=== PATIENT | female | born 1935 | race Caucasian/White ===

== ENCOUNTER 2019-01-01 00:08 | Emergency (ER) | payer MEDICARE ==
[2019-01-01 00:53] LABS: #Basophils 0.1 thou/uL (0.0-0.2); #Eosinphils 0.3 thou/uL (0.0-0.7); #Lymphocytes 1.1 thou/uL (1.20-3.40); #Monocytes 0.5 thou/uL (0.11-0.59); #Neutrophils 9.4 thou/uL (1.40-6.50); %Basophils 0.5 % (0.0-1.0); %Eosinophils 2.3 % (0.0-10.0); %Lymphocytes 9.9 % (21.0-51.0); %Monocytes 4.7 % (0.0-10.0); %Neutrophils 82.6 % (42.0-75.0); Hemoglobin 15.2 g/dL (12.0-16.0); Mean Corpuscular HGB CONC 32.3 g/dL (32.0-36.0); Mean Corpuscular Hemoglobin 29.6 pg (27.0-31.0); Mean Corpuscular Volume 91.5 fL (78.0-98.0); Mean Platelet Volume 7.8 fL (7.4-10.4); Platelet Count 238 thou/uL (130-400); RBC Distribution Width 12.1 % (11.5-14.5); Red Blood Cell (RBC) Count 5.12 mill/uL (4.20-5.40); White Blood Cell (WBC) Count 11.4 thou/uL (4.8-10.8)
[2019-01-01 01:13] LABS: ALT (SGPT) 10 U/L (8-55); AST (SGOT) 16 U/L (5-34); Albumin 4.2 g/dL (3.4-4.8); Alkaline Phosphatase 75 U/L (40-150); Anion Gap 15 mmol/L (10-20); BUN (Urea Nitrogen) 24 mg/dL (9.8-20.1); Bilirubin, Total 0.3 mg/dL (0.2-1.2); Calc. Creatinine Clearance 0 mL/min (70-130); Calcium 9.6 mg/dL (7.8-10.44); Carbon Dioxide 25 mmol/L (23-31); Chloride 108 mmol/L (98-107); Estimated GFR-MDRD 35; Globulin 3.5 g/dL (2.4-3.5); Glucose 136 mg/dL (83-110); Protein, Total 7.7 g/dL (6.0-8.3); Sodium 143 mmol/L (136-145)
[2019-01-01] MEDS ORDERED: Ibuprofen 800 MG TAB ONE (02:57)
[2019-01-01 05:02] LABS: Bilirubin Negative (Negative); Blood, Urine Negative (Negative); Clarity CLEAR (Clear); Glucose, Urine (Dipstick) Negative (Negative); Leukocyte Small (Negative); Nitrite Negative (Negative); Protein, Urine (Dipstick) Trace mg/dL (Neg-Trace); Specific Gravity, Urine 1.029 (1.002-1.036); Urobilinogen 0.2 mg/dL (0.2-1.0)
[2019-01-01 05:05] LABS: Bacteria/HPF None Seen HPF (None Seen); Hyaline Casts/LPF 4-6 HYALINE CAST LPF (0-3 Hyaline); Pathc Cast-AUWi Flag 1.36 (0-2.49); Squamous Epithelial 0-3 HPF (0-3)
--- NOTE | 2019-01-01 09:12 | CT ---
PRELIMINARY REPORT/[facility]/EMERGENCY AFTER HOURS PROCEDURE: EXAM: CT Abdomen and Pelvis Without Contrast EXAM DATE/TIME: 01/01/2019 2:59 AM CLINICAL HISTORY: 83 years old, female; Abdominal pain; Patient HX: Er [id number]; Patient reports having right flank pain, reports she believes it to be a kidney stone. Patient reports pain upon moving TECHNIQUE: Imaging protocol: Axial computed tomography images of the abdomen and pelvis without contrast. Aquino l reformatted images were created and reviewed. COMPARISON: No relevant prior studies available. FINDINGS: Lungs: No consolidations in the lung bases. ABDOMEN: Liver: No mass. Gallbladder and bile ducts: Cholelithiasis. No ductal dilation. Pancreas: No mass or ductal dilation. Spleen: No mass. Adrenals: Well-circumscribed 2.2 cm left adrenal gland nodule. Kidneys and ureters: Nonobstructing 3 mm stone in the inferior pole of the right kidney. Simple cyst measuring 4.5 cm in the left kidney. Stomach and bowel: Colonic diverticulosis. There is a 5 cm solid round mass abutting the greater curv ature of the stomach. Incidental duodenal diverticulum. No bowel obstruction. Appendix: Normal appendix. PELVIS: Bladder: There is a 3 mm stone that may be in the bladder base. No hydronephrosis. The bladder is dec ompressed. Reproductive: There is a calcified 2.7 cm uterine fibroid. There is a 9 cm mass in the pelvis, just a nterior to the uterus and superior to the bladder. ABDOMEN and PELVIS: Intraperitoneal space: No free air or free fluid. Bones/joints: No suspicious bone lesions. Soft tissues: No acute findings. Vasculature: Marked atherosclerotic changes of the abdominal aorta with minimal aneurysmal dilation u p to 2.5 cm. Lymph nodes: No lymphadenopathy. IMPRESSION: 1. There is a 3 mm calcification that appears to be in the posterior bladder, possibly a recently pas sed stone. There is no hydronephrosis. Nonobstructing 3 mm stone in the inferior pole of the right ki dney. 2. There is a 5 cm round circumscribed mass adjacent to the greater curvature of the stomach, primary differential is a GIST. 3. There is a 9 cm round circumscribed mass in the pelvis adjacent to the bladder and uterus, possibl y a large exophytic uterine fibroid, but indeterminate on this exam. 4. Left adrenal gland 2.2 cm nodule. 5. Cholelithiasis. Defer to on-site radiologist recommendations for followup for above indeterminate findings. Thank you for allowing us to participate in the care of your patient. Dictated and Authenticated by: Francia Roque MD 01/01/2019 3:20 AM Central Time ([place] & [place]) FINAL REPORT I agree with the preliminary report provided. 1. There is a tiny calcification seen within the base of the bladder possibly reflective of a recent ly passed stone. 2. A large exophytic hyperdense mass off the anterior aspect of the uterine body is likely related t o a prominent fibroid. This is likely stable to a comparison in 12/14/2014. 3. The solid-appearing mass lesion involving the greater curvature of the stomach is relatively stabl e in size form 2015. CT of the abdomen with and without contrast is recommended for full characteriz ation. 4. Left adrenal nodule has not appreciably changed in size and is suspicious for a slightly lipid-po or adrenal adenoma. This can be further assessed with a CT of the abdomen with and without contrast utilizing a renal mass protocol. 5. Cholelithiasis. 6. Right nephrolithiasis. CODE T POS: BH
== END 2019-01-01 05:22 | disposition home or self-care (01) ==
LOC: ERS 00:08
DX: N20.1 Calculus of ureter (principal); I10 Essential (primary) hypertension; Z79.899 Other long term (current) drug therapy; M19.90 Unspecified osteoarthritis, unspecified site; Z79.891 Long term (current) use of opiate analgesic
CPT/HCPCS: 36415; 74176; 80053; 81003; 81015; 85025

== ENCOUNTER 2019-01-04 13:13 | Emergency (ER) | payer MEDICARE ==
[2019-01-04 14:13] LABS: #Basophils 0.1 thou/uL (0.0-0.2); #Eosinphils 0.2 thou/uL (0.0-0.7); #Lymphocytes 1.5 thou/uL (1.20-3.40); #Monocytes 0.7 thou/uL (0.11-0.59); #Neutrophils 8.2 thou/uL (1.40-6.50); %Basophils 0.7 % (0.0-1.0); %Eosinophils 2.2 % (0.0-10.0); %Lymphocytes 14.2 % (21.0-51.0); %Monocytes 6.2 % (0.0-10.0); %Neutrophils 76.7 % (42.0-75.0); Hemoglobin 15.6 g/dL (12.0-16.0); Mean Corpuscular HGB CONC 32.4 g/dL (32.0-36.0); Mean Corpuscular Hemoglobin 29.6 pg (27.0-31.0); Mean Corpuscular Volume 91.4 fL (78.0-98.0); Mean Platelet Volume 7.6 fL (7.4-10.4); Platelet Count 238 thou/uL (130-400); RBC Distribution Width 12.2 % (11.5-14.5); Red Blood Cell (RBC) Count 5.26 mill/uL (4.20-5.40); White Blood Cell (WBC) Count 10.7 thou/uL (4.8-10.8)
[2019-01-04] MEDS ORDERED: Morphine 4 MG/ML VIAL ONE (14:34)
[2019-01-04] MEDS ORDERED: Ondansetron ODT 8 MG TAB ONE (14:34)
[2019-01-04] MEDS ORDERED: Ketorolac Tromethamine 30 MG/ML VIAL ONE (14:34)
[2019-01-04 14:35] LABS: ALT (SGPT) 12 U/L (8-55); AST (SGOT) 19 U/L (5-34); Alkaline Phosphatase 75 U/L (40-150); Anion Gap 15 mmol/L (10-20); BUN (Urea Nitrogen) 20 mg/dL (9.8-20.1); Bilirubin, Total 0.4 mg/dL (0.2-1.2); Calc. Creatinine Clearance 0 mL/min (70-130); Calcium 9.9 mg/dL (7.8-10.44); Carbon Dioxide 24 mmol/L (23-31); Chloride 104 mmol/L (98-107); Estimated GFR-MDRD 44; Globulin 3.3 g/dL (2.4-3.5); Glucose 105 mg/dL (83-110); Potassium 4.5 mmol/L (3.5-5.1); Protein, Total 7.3 g/dL (6.0-8.3); Sodium 138 mmol/L (136-145)
--- NOTE | 2019-01-04 15:14 | CT ---
CT ABDOMEN AND PELVIS 2WITHOUT CONTRAST: 01/04/19 PROVIDED CLINICAL HISTORY: Right buttock pain. FINDINGS: Comparison is made with the examination performed 01/01/19. The visualized lung bases are free of significant opacity. Gallstones, left adrenal mass, exophytic gastric mass and small urinary bladder calculus are redemons trated. Tiny nonobstructing inferior pole right renal calculus redemonstrated. No evidence for hydro nephrosis. No bowel dilatation, inflammatory fat stranding, free fluid or free air apparent. Uterine fibroid dis ease is redemonstrated. The appendix appears normal. The osseous structures demonstrate no concerning lytic or blastic lesions. IMPRESSION: No evidence for an acute process. Stable chronic findings as above. POS: C
[2019-01-04 15:15] LABS: Bilirubin Negative (Negative); Blood, Urine Negative (Negative); Glucose, Urine (Dipstick) Negative (Negative); Leukocyte Negative (Negative); Nitrite Negative (Negative); Protein, Urine (Dipstick) Negative (Neg-Trace); Specific Gravity, Urine 1.011 (1.002-1.036); Urobilinogen 0.2 mg/dL (0.2-1.0); pH, Urine 7.5 (5.0-9.0)
[2019-01-04 15:23] LABS: Clarity Clear (Clear)
[2019-01-04] MEDS ORDERED: Dexamethasone 4 mg/ml Vial ONE (16:17)
== END 2019-01-04 16:05 | disposition home or self-care (01) ==
LOC: ERS 13:13
DX: M54.31 Sciatica, right side (principal); I10 Essential (primary) hypertension; M19.90 Unspecified osteoarthritis, unspecified site; Z79.899 Other long term (current) drug therapy
CPT/HCPCS: 36415; 74176; 80053; 81003; 85025; 87086; 96372; J1100; J1885; J2270

== ENCOUNTER 2020-01-23 08:14 | Outpatient (CLI) | payer MEDICARE ==
--- NOTE | 2020-01-23 10:47 | CT ---
CT abdomen with and without contrast: DATE: 01/23/2020 HISTORY: 84-year-old female with ICD-10: "N20.0 nephrolithiasis." Gastric mass and adrenal mass. COMPARISON: Noncontrast CTs of 01/04/2019, 01/01/2019, and 12/14/2014 TECHNIQUE: IV contrast: 90 mL [id number]. Precontrast, and venous phase, scans from lung bases to iliac crests with coronal and sagittal recons tructions. 10 minute delayed scan through adrenals. FINDINGS: Approximately 2 x 1.5 x 2.5 cm left adrenal nodule is unchanged compared to 12/14/2014. Furthermore, pr econtrast density is 6 Hounsfield units, also consistent with benign adrenal adenoma. Venous phase density 62 Hounsfield units. Delayed phase density 28 Hounsfield units. Absolute washout 61%. Relativ e washout 55%. There are 2 separate 1 mm round calculi at right renal lower pole calyces, visible only on sagittal a nd coronal reconstructions. No calculus in the left kidney. No hydronephrosis. 4.5 cm cyst at medial aspect of left renal upper pole has grown slowly since 2014. by a thin septation, th ere is a smaller second cyst or daughter cyst measuring 2 cm abutting its superior aspect. Several tiny left renal cortical cysts and a few tiny right renal cortical cysts, less than 1 cm in size each . No hydronephrosis. Several calcified gallstones. No signs of acute cholecystitis. Smoothly well-circumscribed, rounded 5 x 3.5 x 4.5 cm soft tissue density pedunculated mass exophytic ally protruding from the corpus of the stomach. Densities are 37 Hounsfield units precontrast, 69 Hounsfield units venous phase, and 60 Hounsfield units delayed phase. There has been little or no mikel nge in size since 12/14/2014. Atherosclerotic calcific aeration of abdominal aorta and common iliac arteries without aneurysm. Normal liver, spleen, and pancreas. Diverticulum at second stage of duodenum. 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 2) benign left adrenal adenoma. 3) cholelithiasis without acute cholecystitis 4) minimal nephrolithiasis: 2 punctate 1 mm right renal calculi. 6) atherosclerosis of abdominal aorta. 7) lumbar spondylosis
== END 2020-01-23 08:15 | disposition home or self-care (01) ==
LOC: CT 08:14
PROVIDERS: ATTEND Urology
DX: N20.0 Calculus of kidney (principal); D49.0 Neoplasm of unspecified behavior of digestive system; D35.02 Benign neoplasm of left adrenal gland; K80.20 Calculus of gallbladder without cholecystitis without obstruction; I70.0 Atherosclerosis of aorta; M47.816 Spondylosis without myelopathy or radiculopathy, lumbar region
CPT/HCPCS: 74170; 82565

== ENCOUNTER 2020-10-20 17:21 | Emergency (ER) | payer MEDICARE ==
[2020-10-20 18:57] LABS: ALT (SGPT) 7 U/L (8-55); AST (SGOT) 15 U/L (5-34); Alkaline Phosphatase 87 U/L (40-110); Anion Gap 14 mmol/L (10-20); BUN (Urea Nitrogen) 18 mg/dL (9.8-20.1); Bilirubin, Total 0.5 mg/dL (0.2-1.2); CK (CPK) 74 U/L (29-168); Calc. Creatinine Clearance 0 mL/min (70-130); Calcium 9.4 mg/dL (7.8-10.44); Carbon Dioxide 25 mmol/L (23-31); Chloride 105 mmol/L (98-107); Globulin 3.4 g/dL (2.4-3.5); Glucose 110 mg/dL (83-110); Lipase 42 U/L (8-78); Potassium 4.1 mmol/L (3.5-5.1); Protein, Total 7.4 g/dL (5.8-8.1); Sodium 140 mmol/L (136-145)
[2020-10-20 19:01] LABS: #Eosinphils 0.2 thou/uL (0.0-0.7); #Lymphocytes 1.4 thou/uL (1.20-3.40); #Monocytes 0.7 thou/uL (0.11-0.59); #Neutrophils 6.8 thou/uL (1.40-6.50); %Basophils 0.4 % (0.0-1.0); %Eosinophils 2.1 % (0.0-10.0); %Lymphocytes 15.2 % (21.0-51.0); %Monocytes 7.8 % (0.0-10.0); %Neutrophils 74.5 % (42.0-75.0); Hemoglobin 14.6 g/dL (12.0-16.0); Mean Corpuscular HGB CONC 32.9 g/dL (32.0-36.0); Mean Corpuscular Hemoglobin 30.5 pg (27.0-31.0); Mean Corpuscular Volume 92.7 fL (78.0-98.0); Mean Platelet Volume 8.9 fL (7.4-10.4); Platelet Count 205 thou/uL (130-400); RBC Distribution Width 11.7 % (11.5-14.5); Red Blood Cell (RBC) Count 4.77 mill/uL (4.20-5.40); White Blood Cell (WBC) Count 9.2 thou/uL (4.8-10.8)
[2020-10-20 19:05] LABS: Bilirubin Negative (Negative); Blood, Urine Trace (Negative); Clarity Turbid (Clear); Glucose, Urine (Dipstick) Normal (Negative); Ketone, Urine Negative (Negative); Leukocyte 500 Leu/uL (Negative); Nitrite Negative (Negative); Protein, Urine (Dipstick) 10 mg/dL (Neg-Trace); Specific Gravity, Urine 1.021 (1.002-1.036); Urobilinogen Normal mg/dL (Less than 2); WBC/HPF Greater than 50 HPF (0-3)
[2020-10-20 19:06] LABS: Bacteria/HPF 1+ HPF (None Seen)
[2020-10-20] MEDS ORDERED: Furosemide 40 MG/4 ML VIAL ONE (20:21)
== END 2020-10-20 20:40 | disposition home or self-care (01) ==
LOC: ERS 17:21
DX: R60.0 Localized edema (principal); I10 Essential (primary) hypertension; Z79.899 Other long term (current) drug therapy
CPT/HCPCS: 36415; 71045; 80053; 81003; 81015; 82550; 83690; 83880; 84484; 85025; 93005; 94760; 96374; J1940

== ENCOUNTER 2021-12-17 08:31 | Emergency (ER) | payer MEDICARE ==
[2021-12-17 09:42] LABS: #Basophils 0.1 thou/uL (0.0-0.2); #Eosinphils 0.2 thou/uL (0.0-0.7); #Lymphocytes 1.4 thou/uL (1.20-3.40); #Monocytes 0.5 thou/uL (0.11-0.59); #Neutrophils 6.7 thou/uL (1.40-6.50); %Basophils 0.8 % (0.0-1.0); %Eosinophils 2.8 % (0.0-10.0); %Lymphocytes 15.4 % (21.0-51.0); %Monocytes 5.3 % (0.0-10.0); %Neutrophils 75.7 % (42.0-75.0); Hemoglobin 14.5 g/dL (12.0-16.0); Mean Corpuscular HGB CONC 32.4 g/dL (32.0-36.0); Mean Corpuscular Hemoglobin 30.4 pg (27.0-31.0); Mean Corpuscular Volume 93.9 fL (78.0-98.0); Mean Platelet Volume 7.4 fL (7.4-10.4); Platelet Count 245 thou/uL (130-400); RBC Distribution Width 11.9 % (11.5-14.5); Red Blood Cell (RBC) Count 4.77 mill/uL (4.20-5.40); White Blood Cell (WBC) Count 8.9 thou/uL (4.8-10.8)
[2021-12-17 09:55] LABS: INR-International Normal Ratio 1.1; PTT 34.1 sec (22.9-36.1); Prothrombin Time 13.9 sec (12.0-14.7)
[2021-12-17 10:00] LABS: ALT (SGPT) 10 U/L (8-55); AST (SGOT) 18 U/L (5-34); Alkaline Phosphatase 87 U/L (40-110); Anion Gap 15 mmol/L (10-20); BUN (Urea Nitrogen) 11 mg/dL (9.8-20.1); Bilirubin, Total 0.6 mg/dL (0.2-1.2); Calc. Creatinine Clearance 0 mL/min (70-130); Calcium 9.6 mg/dL (7.8-10.44); Carbon Dioxide 26 mmol/L (23-31); Chloride 105 mmol/L (98-107); Globulin 3.4 g/dL (2.4-3.5); Glucose 118 mg/dL (83-110); Potassium 4.5 mmol/L (3.5-5.1); Protein, Total 7.4 g/dL (5.8-8.1); Sodium 141 mmol/L (136-145)
== END 2021-12-17 12:33 | disposition home or self-care (01) ==
LOC: ERS 08:31
DX: K92.2 Gastrointestinal hemorrhage, unspecified (principal); I10 Essential (primary) hypertension; M19.90 Unspecified osteoarthritis, unspecified site; Z87.442 Personal history of urinary calculi; Z79.899 Other long term (current) drug therapy
CPT/HCPCS: 74177; 80053; 85025; 85610; 85730

== ENCOUNTER 2023-03-22 11:46 | Observation (INO) | payer MEDICARE ==
[~2023-03-22 11:46] MED LIST: Iopamidol-370 76% 500 ML MDV (1 ML CHARGE) ONE
[2023-03-22] MEDS ORDERED: Vancomycin 1 GM/200 ML (FROZEN) BAG ONE (12:47)
[2023-03-22 12:51] LABS: #Basophils 0.1 thou/uL (0.0-0.2); #Eosinphils 0.4 thou/uL (0.0-0.7); #Monocytes 0.6 thou/uL (0.11-0.59); #Neutrophils 6.7 thou/uL (1.40-6.50); %Basophils 0.6 % (0.0-1.0); %Eosinophils 4.4 % (0.0-10.0); %Lymphocytes 18.5 % (21.0-51.0); %Monocytes 6.7 % (0.0-10.0); %Neutrophils 69.5 % (42.0-75.0); Hematocrit 41.4 % (36.0-47.0); Hemoglobin 13.2 g/dL (12.0-16.0); Mean Corpuscular HGB CONC 31.9 g/dL (32.0-36.0); Mean Corpuscular Hemoglobin 29.8 pg (27.0-31.0); Mean Corpuscular Volume 93.5 fl (78.0-98.0); Mean Platelet Volume 10.3 fL (7.4-10.4); Platelet Count 288 10x3/uL (130-400); RBC Distribution Width 12.8 % (11.5-14.5); Red Blood Cell (RBC) Count 4.43 mill/uL (4.20-5.40); White Blood Cell (WBC) Count 9.6 10x3/uL (4.8-10.8)
[2023-03-22 13:15] LABS: ALT (SGPT) Less than 7 U/L (8-55); AST (SGOT) 12 U/L (5-34); Albumin 3.4 g/dL (3.4-4.8); Alkaline Phosphatase 129 U/L (40-110); Anion Gap 13 mmol/L (10-20); BUN (Urea Nitrogen) 13 mg/dL (9.8-20.1); Bilirubin, Total 0.4 mg/dL (0.2-1.2); Calc. Creatinine Clearance 0 mL/min (70-130); Carbon Dioxide 28 mmol/L (23-31); Chloride 104 mmol/L (98-107); Estimated GFR 58; Globulin 3.1 g/dL (2.4-3.5); Glucose 98 mg/dL (83-110); Potassium 4.6 mmol/L (3.5-5.1); Protein, Total 6.5 g/dL (5.8-8.1); Sodium 140 mmol/L (136-145)
[2023-03-22 14:39] LABS: Bacteria/HPF None Seen HPF (None Seen); Bilirubin Negative (Negative); Blood, Urine Negative (Negative); CAUTI Indications for Culture Alt mental st,lethar; Clarity Clear (Clear); Glucose, Urine (Dipstick) Normal (Negative); Ketone, Urine Negative (Negative); Leukocyte Negative Leu/uL (Negative); Nitrite Negative (Negative); Protein, Urine (Dipstick) Negative (Neg-Trace); RBC/HPF 0-3 HPF (0-3); Specific Gravity, Urine 1.008 (1.002-1.036); Squamous Epithelial 0-3 HPF (0-3); Urobilinogen Normal mg/dL (Less than 2); WBC/HPF 0-3 HPF (0-3); pH, Urine 7.5 (5.0-9.0)
[2023-03-22 14:40] LABS: Urine Culture Reflex No No
[2023-03-22 15:03] LABS: Lactic Acid 1.5 mmol/L (0.5-2.2)
[2023-03-22] MEDS ORDERED: Heparin 10,000 UNITS/ 10 ML VIAL ONE (15:11)
[2023-03-22] MEDS ORDERED: Heparin 25,000 units/D5W 500 ML ONE (15:11)
[2023-03-22] MEDS ORDERED: Lactated Ringer's 500 ML IV SCH (15:30)
[2023-03-22] MEDS ORDERED: HYDROcodone/Acetaminophen 5/325 mg Tablet PO PRN (15:30)
[2023-03-22] MEDS ORDERED: Ondansetron PF 4 MG/2 ML Vial IVP PRN (15:30)
[2023-03-22] MEDS ORDERED: Acetaminophen 325 MG TAB PO PRN (15:30)
[2023-03-22 15:38] LABS: Prothrombin Time 13.3 sec (12.0-14.7)
[2023-03-22 18:21] VITALS: BMI 34.0
[2023-03-22 19:36] LABS: Lactic Acid 2.1 mmol/L (0.5-2.2)
[2023-03-23 05:43] LABS: #Eosinphils 0.3 thou/uL (0.0-0.7); #Monocytes 0.6 thou/uL (0.11-0.59); #Neutrophils 5.4 thou/uL (1.40-6.50); %Basophils 0.5 % (0.0-1.0); %Eosinophils 4.1 % (0.0-10.0); %Lymphocytes 20.3 % (21.0-51.0); %Monocytes 7.3 % (0.0-10.0); %Neutrophils 67.3 % (42.0-75.0); Hematocrit 39.4 % (36.0-47.0); Hemoglobin 12.7 g/dL (12.0-16.0); Mean Corpuscular HGB CONC 32.2 g/dL (32.0-36.0); Mean Corpuscular Hemoglobin 29.6 pg (27.0-31.0); Mean Corpuscular Volume 91.8 fl (78.0-98.0); Mean Platelet Volume 9.8 fL (7.4-10.4); Platelet Count 283 10x3/uL (130-400); RBC Distribution Width 12.8 % (11.5-14.5); Red Blood Cell (RBC) Count 4.29 mill/uL (4.20-5.40); White Blood Cell (WBC) Count 8.1 10x3/uL (4.8-10.8)
[2023-03-23 06:08] LABS: Anion Gap 13 mmol/L (10-20); BUN (Urea Nitrogen) 10 mg/dL (9.8-20.1); Calc. Creatinine Clearance 77 mL/min (70-130); Calcium 8.7 mg/dL (7.8-10.44); Carbon Dioxide 23 mmol/L (23-31); Chloride 106 mmol/L (98-107); Estimated GFR 73; Glucose 81 mg/dL (83-110); Potassium 4.2 mmol/L (3.5-5.1); Sodium 138 mmol/L (136-145)
[2023-03-23 16:09] VITALS: TEMP 98.7
[2023-03-23 18:19] VITALS: BP 168/86
[2023-03-23] MEDS ORDERED: Apixaban 5 MG TAB PO SCH (19:00)
[2023-03-23] MEDS ORDERED: cloNIDine 0.2 MG TAB PO SCH (21:00)
[2023-03-24] MEDS ORDERED: Potassium Citrate 10 MEQ TAB PO SCH (09:00)
[2023-03-24] MEDS ORDERED: Calcium Carbonate 600 MG TAB PO SCH (09:00)
[2023-03-24] MEDS ORDERED: NIFEdipine XL 30 MG TAB PO SCH (09:00)
[2023-03-24] MEDS ORDERED: Non-Formulary Item 1 EACH (Nifedipine [Nifedipine Er] 30 MG Tablet.Er) PO SCH (09:00)
== END 2023-03-23 19:21 | disposition home health service (06) ==
LOC: SUATTDRO 11:46 → ERS 11:46 → 2SE 15:31 → INTOOBSV 03-23 11:35 → OBSVTOIN 03-23 11:35
PROVIDERS: ADMIT Internal Medicine; ATTEND Family Medicine
DX: I82.402 Acute embolism and thrombosis of unspecified deep veins of left lower extremity (principal); I10 Essential (primary) hypertension; E66.01 Morbid (severe) obesity due to excess calories; I87.312 Chronic venous hypertension (idiopathic) with ulcer of left lower extremity; I26.99 Other pulmonary embolism without acute cor pulmonale; R53.81 Other malaise; E87.20 Acidosis, unspecified; Z88.2 Allergy status to sulfonamides; Z68.34 Body mass index [BMI] 34.0-34.9, adult
CPT/HCPCS: 71045; 71275; 80048; 80053; 81001; 83605; 84484; 85025 ×2; 85610; 85730; 93005; 93971; 96372 ×2; 97116; G0378 ×3; J3370; 36415; 96365; J1644; J1650; Q9967

== ENCOUNTER 2023-08-13 10:58 | Inpatient (IN) | payer MEDICARE ==
[2023-08-13 11:55] LABS: %Basophils 0.7 % (0.0-1.0); %Eosinophils 0.1 % (0.0-10.0); %Lymphocytes 5.1 % (21.0-51.0); %Neutrophils 88.4 % (42.0-75.0); Hematocrit 39.5 % (36.0-47.0); Hemoglobin 12.6 g/dL (12.0-16.0); Mean Corpuscular HGB CONC 31.9 g/dL (32.0-36.0); Mean Corpuscular Hemoglobin 27.5 pg (27.0-31.0); Mean Corpuscular Volume 86.2 fl (78.0-98.0); Mean Platelet Volume 12.1 fL (7.4-10.4); Platelet Count 109 10x3/uL (130-400); RBC Distribution Width 13.1 % (11.5-14.5); Red Blood Cell (RBC) Count 4.58 mill/uL (4.20-5.40)
[2023-08-13 11:56] LABS: #Basophils 0.1 thou/uL (0.0-0.2); #Monocytes 0.5 thou/uL (0.11-0.59); #Neutrophils 10.6 thou/uL (1.40-6.50)
[2023-08-13 12:13] LABS: ALT (SGPT) 62 U/L (8-55); AST (SGOT) 136 U/L (5-34); Acetaminophen Less than 10 mcg/mL (10.0-30.0); Albumin 2.9 g/dL (3.4-4.8); Alcohol Less than 10.0 mg/dL (Less than 10); Alkaline Phosphatase 162 U/L (40-110); Anion Gap 19 mmol/L (10-20); BUN (Urea Nitrogen) 80 mg/dL (9.8-20.1); Bilirubin, Total 0.5 mg/dL (0.2-1.2); Calc. Creatinine Clearance 0 mL/min (70-130); Calcium 8.1 mg/dL (7.8-10.44); Carbon Dioxide 20 mmol/L (23-31); Chloride 101 mmol/L (98-107); Estimated GFR 13; Globulin 3.4 g/dL (2.4-3.5); Glucose 128 mg/dL (83-110); Lipase 298 U/L (8-78); Magnesium 2.1 mg/dL (1.6-2.6); Potassium 3.8 mmol/L (3.5-5.1); Protein, Total 6.3 g/dL (5.8-8.1); Salicylate Less than 8.0 mg/dL (15.0-30.0); Sodium 136 mmol/L (136-145)
[2023-08-13 12:34] LABS: Troponin I 0.197 ng/mL (< 0.028)
[2023-08-13 14:06] LABS: Bacteria/HPF 4+ HPF (None Seen); Bilirubin Negative (Negative); Blood, Urine 3+ (Negative); CAUTI Indications for Culture Dysuria,urgency,freq; Clarity Turbid (Clear); Glucose, Urine (Dipstick) Normal (Negative); Ketone, Urine Negative (Negative); Leukocyte 500 Leu/uL (Negative); Nitrite Negative (Negative); Protein, Urine (Dipstick) 50 mg/dL (Neg-Trace); RBC/HPF 0-3 HPF (0-3); Specific Gravity, Urine 1.013 (1.002-1.036); Squamous Epithelial None Seen HPF (0-3); Urobilinogen Normal mg/dL (Less than 2); WBC/HPF Greater than 50 HPF (0-3)
[2023-08-13 14:08] LABS: Amphetamine Not Detected (NotDetected); Barbiturates Screen Not Detected (NotDetected); Benzodiazepine Screen Not Detected (NotDetected); Cocaine Metabolite Screen Not Detected (NotDetected); Methadone Not Detected (NotDetected); Methamphetamine Not Detected (NotDetected); Opiate Screen Not Detected (NotDetected); Oxycodone Screen Not Detected (NotDetected); Phencyclidine (PCP) Not Detected (NotDetected); THC/Cannabinoid Screen Not Detected (NotDetected); Tricyclic Screen Not Detected (NotDetected)
[2023-08-13 14:11] LABS: Urine Culture Reflex Yes Yes
[2023-08-13] MEDS ORDERED: cefTRIAXone (ROCEPHIN) 2 GM VIAL ONE (15:32)
[2023-08-13] MEDS ORDERED: dilTIAZem 25 MG/5 ML VIAL ONE (15:34)
[2023-08-13] MEDS ORDERED: dilTIAZem 125 MG/25 ML SDV ONE (15:38)
[2023-08-13] MEDS ORDERED: Sodium Chloride 0.9% 100 ML ONE (15:44)
[2023-08-13] MEDS ORDERED: Ondansetron PF 4 MG/2 ML Vial IVP PRN (16:25)
[2023-08-13] MEDS ORDERED: dilTIAZem 125 MG in Sodium Chloride 0.9% 100 ML IVPB SCH (16:45)
[2023-08-13 17:00] LABS: Troponin I 0.146 ng/mL (< 0.028)
[2023-08-13 19:37] LABS: Troponin I 0.149 ng/mL (< 0.028)
[2023-08-13] MEDS: Tamsulosin HCl 0.4 MG CAP PO SCH (23:11)
[2023-08-13] MEDS: Heparin 5,000 UNITS/ML VIAL SC SCH (23:11)
[2023-08-13] MEDS: cloNIDine 0.2 MG TAB PO SCH (23:11)
[2023-08-13] MEDS: Lactated Ringer's 1,000 ML IV SCH (23:13)
[2023-08-14 05:51] LABS: Hematocrit 36.5 % (36.0-47.0); Hemoglobin 11.2 g/dL (12.0-16.0); Mean Corpuscular HGB CONC 30.7 g/dL (32.0-36.0); Mean Corpuscular Hemoglobin 27.5 pg (27.0-31.0); Mean Platelet Volume 12.5 fL (7.4-10.4); RBC Distribution Width 13.4 % (11.5-14.5); Red Blood Cell (RBC) Count 4.08 mill/uL (4.20-5.40); White Blood Cell (WBC) Count 9.5 10x3/uL (4.8-10.8)
[2023-08-14 06:06] LABS: Platelet Count 73 10x3/uL (130-400)
[2023-08-14 06:07] LABS: Mean Corpuscular Volume 89.5 fl (78.0-98.0)
[2023-08-14 06:08] LABS: Delete Auto Diff?? YES; Manual Diff?? YES
[2023-08-14 06:35] LABS: ALT (SGPT) 46 U/L (8-55); AST (SGOT) 82 U/L (5-34); Albumin 2.3 g/dL (3.4-4.8); Alkaline Phosphatase 145 U/L (40-110); Anion Gap 18 mmol/L (10-20); BUN (Urea Nitrogen) 74 mg/dL (9.8-20.1); Bilirubin, Total 0.3 mg/dL (0.2-1.2); Calc. Creatinine Clearance 22 mL/min (70-130); Calcium 7.2 mg/dL (7.8-10.44); Carbon Dioxide 18 mmol/L (23-31); Chloride 104 mmol/L (98-107); Estimated GFR 17; Globulin 3.1 g/dL (2.4-3.5); Glucose 139 mg/dL (83-110); Potassium 3.9 mmol/L (3.5-5.1); Protein, Total 5.4 g/dL (5.8-8.1); Sodium 136 mmol/L (136-145)
[2023-08-14 06:45] LABS: Band 2 % (5-11); Eosinophils 1 % (0-10); Lymphocytes 8 % (21-51); Monocytes 4 % (0-10); Neutrophil 85 % (42-75); Platelet Adequacy Comment Appears Decreased
[2023-08-14] MEDS ORDERED: NIFEdipine XL 30 MG ER.TAB PO SCH (09:00)
[2023-08-14] MEDS: Lactated Ringer's 1,000 ML IV SCH ×2 (09:22→20:44)
[2023-08-14] MEDS: Heparin 5,000 UNITS/ML VIAL SC SCH ×3 (09:39→20:56)
[2023-08-14] MEDS: NIFEdipine XL 30 MG ER.TAB PO SCH (09:39)
[2023-08-14] MEDS: Calcium Carbonate 600 MG TAB PO SCH (09:40)
[2023-08-14] MEDS: Acetaminophen 325 MG TAB PO PRN (09:40)
[2023-08-14] MEDS: cloNIDine 0.2 MG TAB PO SCH (09:40)
[2023-08-14] MEDS: HYDROcodone/Acetaminophen 5/325 mg Tablet PO PRN ×2 (10:46→15:44)
[2023-08-14] MEDS ORDERED: Piperacillin/Tazobactam 3.375 GM in Sodium Chloride 0.9% 100 ML IVPB SCH ×4 (11:45→22:00)
[2023-08-14] MEDS: Amiodarone 200 MG TAB PO SCH ×2 (15:46→20:45)
[2023-08-14] MEDS ORDERED: cefTRIAXone\\ROCEPHIN 1 GM in Sodium Chloride 0.9% 100 ML IVPB SCH (16:00)
[2023-08-14] MEDS: Tamsulosin HCl 0.4 MG CAP PO SCH (20:45)
[2023-08-14] MEDS: Piperacillin/Tazobactam 3.375 GM in Sodium Chloride 0.9% 100 ML IVPB SCH (20:45)
[2023-08-15 05:30] LABS: #Eosinphils 0.2 thou/uL (0.0-0.7); #Monocytes 0.7 thou/uL (0.11-0.59); #Neutrophils 9.8 thou/uL (1.40-6.50); %Basophils 0.2 % (0.0-1.0); %Eosinophils 1.6 % (0.0-10.0); %Lymphocytes 8.1 % (21.0-51.0); %Neutrophils 82.1 % (42.0-75.0); Hematocrit 33.6 % (36.0-47.0); Hemoglobin 10.9 g/dL (12.0-16.0); Mean Corpuscular HGB CONC 32.4 g/dL (32.0-36.0); Mean Corpuscular Hemoglobin 28.1 pg (27.0-31.0); Mean Platelet Volume 12.1 fL (7.4-10.4); RBC Distribution Width 13.3 % (11.5-14.5); Red Blood Cell (RBC) Count 3.88 mill/uL (4.20-5.40); White Blood Cell (WBC) Count 11.9 10x3/uL (4.8-10.8)
[2023-08-15 05:50] LABS: Anion Gap 14 mmol/L (10-20); BUN (Urea Nitrogen) 63 mg/dL (9.8-20.1); Calc. Creatinine Clearance 26 mL/min (70-130); Calcium 7.6 mg/dL (7.8-10.44); Carbon Dioxide 21 mmol/L (23-31); Chloride 101 mmol/L (98-107); Estimated GFR 21; Glucose 107 mg/dL (83-110); Potassium 3.9 mmol/L (3.5-5.1); Sodium 132 mmol/L (136-145)
[2023-08-15 06:12] LABS: Mean Corpuscular Volume 86.6 fl (78.0-98.0); Platelet Count 102 10x3/uL (130-400)
[2023-08-15] MEDS: HYDROcodone/Acetaminophen 5/325 mg Tablet PO PRN ×2 (09:25→14:09)
[2023-08-15] MEDS: NIFEdipine XL 30 MG ER.TAB PO SCH (09:25)
[2023-08-15] MEDS: Calcium Carbonate 600 MG TAB PO SCH (09:25)
[2023-08-15] MEDS: Amiodarone 200 MG TAB PO SCH ×3 (09:25→20:33)
[2023-08-15] MEDS: Piperacillin/Tazobactam 3.375 GM in Sodium Chloride 0.9% 100 ML IVPB SCH ×2 (09:26→20:34)
[2023-08-15] MEDS: Heparin 5,000 UNITS/ML VIAL SC SCH ×3 (09:26→20:34)
[2023-08-15] MEDS: Lactated Ringer's 1,000 ML IV SCH ×2 (09:26→20:34)
[2023-08-15] MEDS: Tamsulosin HCl 0.4 MG CAP PO SCH (20:33)
[2023-08-16 05:43] LABS: #Eosinphils 0.2 thou/uL (0.0-0.7); #Monocytes 0.7 thou/uL (0.11-0.59); #Neutrophils 9.9 thou/uL (1.40-6.50); %Basophils 0.3 % (0.0-1.0); %Eosinophils 1.7 % (0.0-10.0); %Lymphocytes 7.4 % (21.0-51.0); %Monocytes 5.6 % (0.0-10.0); %Neutrophils 82.5 % (42.0-75.0); Hematocrit 33.5 % (36.0-47.0); Hemoglobin 10.6 g/dL (12.0-16.0); Mean Corpuscular HGB CONC 31.6 g/dL (32.0-36.0); Mean Corpuscular Hemoglobin 27.2 pg (27.0-31.0); Mean Corpuscular Volume 86.1 fl (78.0-98.0); Mean Platelet Volume 12.2 fL (7.4-10.4); Platelet Count 124 10x3/uL (130-400); RBC Distribution Width 13.4 % (11.5-14.5); Red Blood Cell (RBC) Count 3.89 mill/uL (4.20-5.40)
[2023-08-16 06:41] LABS: Anion Gap 12 mmol/L (10-20); BUN (Urea Nitrogen) 53 mg/dL (9.8-20.1); Calc. Creatinine Clearance 27 mL/min (70-130); Calcium 7.5 mg/dL (7.8-10.44); Carbon Dioxide 22 mmol/L (23-31); Chloride 101 mmol/L (98-107); Estimated GFR 22; Glucose 109 mg/dL (83-110); Potassium 4.1 mmol/L (3.5-5.1); Sodium 131 mmol/L (136-145)
[2023-08-16] MEDS: NIFEdipine XL 30 MG ER.TAB PO SCH (08:48)
[2023-08-16] MEDS: Heparin 5,000 UNITS/ML VIAL SC SCH ×3 (08:49→20:58)
[2023-08-16] MEDS: Calcium Carbonate 600 MG TAB PO SCH (08:49)
[2023-08-16] MEDS: Piperacillin/Tazobactam 3.375 GM in Sodium Chloride 0.9% 100 ML IVPB SCH ×2 (08:49→20:59)
[2023-08-16] MEDS: Amiodarone 200 MG TAB PO SCH ×3 (08:49→20:59)
[2023-08-16] MEDS ORDERED: Lactated Ringer's 1,000 ML IV SCH (10:08)
[2023-08-16] MEDS ORDERED: Furosemide 20 MG (2 mL) VIAL SLOW IVP SCH (10:15)
[2023-08-16] MEDS: Tamsulosin HCl 0.4 MG CAP PO SCH (20:58)
[2023-08-17 08:04] LABS: #Eosinphils 0.2 thou/uL (0.0-0.7); #Monocytes 0.5 thou/uL (0.11-0.59); #Neutrophils 11.5 thou/uL (1.40-6.50); %Basophils 0.3 % (0.0-1.0); %Eosinophils 1.2 % (0.0-10.0); %Lymphocytes 5.7 % (21.0-51.0); %Neutrophils 86.1 % (42.0-75.0); Hematocrit 37.5 % (36.0-47.0); Hemoglobin 11.8 g/dL (12.0-16.0); Mean Corpuscular HGB CONC 31.5 g/dL (32.0-36.0); Mean Corpuscular Hemoglobin 27.4 pg (27.0-31.0); Mean Corpuscular Volume 87.2 fl (78.0-98.0); Mean Platelet Volume 11.3 fL (7.4-10.4); Platelet Count 188 10x3/uL (130-400); RBC Distribution Width 13.6 % (11.5-14.5); White Blood Cell (WBC) Count 13.4 10x3/uL (4.8-10.8)
[2023-08-17 08:25] LABS: Anion Gap 15 mmol/L (10-20); BUN (Urea Nitrogen) 47 mg/dL (9.8-20.1); Calc. Creatinine Clearance 27 mL/min (70-130); Calcium 8.1 mg/dL (7.8-10.44); Carbon Dioxide 21 mmol/L (23-31); Chloride 103 mmol/L (98-107); Estimated GFR 22; Glucose 131 mg/dL (83-110); Potassium 3.8 mmol/L (3.5-5.1); Sodium 135 mmol/L (136-145)
[2023-08-17] MEDS: NIFEdipine XL 30 MG ER.TAB PO SCH (08:35)
[2023-08-17] MEDS: Piperacillin/Tazobactam 3.375 GM in Sodium Chloride 0.9% 100 ML IVPB SCH ×2 (08:35→21:50)
[2023-08-17] MEDS: Heparin 5,000 UNITS/ML VIAL SC SCH ×3 (08:35→21:50)
[2023-08-17] MEDS: Calcium Carbonate 600 MG TAB PO SCH (08:35)
[2023-08-17] MEDS: Amiodarone 200 MG TAB PO SCH ×3 (08:35→21:50)
[2023-08-17] MEDS ORDERED: Furosemide 20 MG (2 mL) VIAL SLOW IVP SCH (17:45)
[2023-08-17] MEDS ORDERED: Digoxin 0.5 MG/2 ML AMP SLOW IVP SCH (17:45)
[2023-08-17] MEDS: Tamsulosin HCl 0.4 MG CAP PO SCH (21:50)
[2023-08-17] MEDS: HYDROcodone/Acetaminophen 5/325 mg Tablet PO PRN (21:50)
[2023-08-17] MEDS ORDERED: Vancomycin Dose by Levels Sliding Scale (Wt 71-99) FS SCH (23:45)
[2023-08-17] MEDS ORDERED: Vancomycin 1 GM in Premix 1 BAG IVPB SCH (23:45)
[2023-08-17] MEDS ORDERED: Vancomycin (BATCH) 2 GM in Premix 1 BAG IVPB SCH (23:59)
[2023-08-17] MEDS ORDERED: Meropenem 1 GM in Sodium Chloride 0.9% 100 ML IVPB SCH (23:59)
[2023-08-18 01:06] LABS: #Eosinphils 0.2 thou/uL (0.0-0.7); #Monocytes 0.6 thou/uL (0.11-0.59); #Neutrophils 12.6 thou/uL (1.40-6.50); %Basophils 0.1 % (0.0-1.0); %Eosinophils 1.5 % (0.0-10.0); %Lymphocytes 6.1 % (21.0-51.0); %Monocytes 4.3 % (0.0-10.0); %Neutrophils 85.5 % (42.0-75.0); Hematocrit 33.5 % (36.0-47.0); Hemoglobin 10.6 g/dL (12.0-16.0); Mean Corpuscular HGB CONC 31.6 g/dL (32.0-36.0); Mean Corpuscular Volume 88.4 fl (78.0-98.0); Mean Platelet Volume 10.9 fL (7.4-10.4); Platelet Count 227 10x3/uL (130-400); RBC Distribution Width 13.5 % (11.5-14.5); Red Blood Cell (RBC) Count 3.79 mill/uL (4.20-5.40); White Blood Cell (WBC) Count 14.7 10x3/uL (4.8-10.8)
[2023-08-18 01:26] LABS: Anion Gap 13 mmol/L (10-20); BUN (Urea Nitrogen) 43 mg/dL (9.8-20.1); Calc. Creatinine Clearance 27 mL/min (70-130); Carbon Dioxide 23 mmol/L (23-31); Chloride 103 mmol/L (98-107); Estimated GFR 22; Glucose 102 mg/dL (83-110); Sodium 135 mmol/L (136-145)
[2023-08-18] MEDS ORDERED: Meropenem 1 GM in Sodium Chloride 0.9% 100 ML IVPB SCH (06:00)
[2023-08-18] MEDS ORDERED: Vancomycin 1 GM in Premix 1 BAG IVPB SCH (09:00)
[2023-08-18] MEDS: Calcium Carbonate 600 MG TAB PO SCH (09:10)
[2023-08-18] MEDS: NIFEdipine XL 30 MG ER.TAB PO SCH (09:10)
[2023-08-18] MEDS: Amiodarone 200 MG TAB PO SCH ×3 (09:10→21:19)
[2023-08-18] MEDS: Heparin 5,000 UNITS/ML VIAL SC SCH ×3 (09:11→21:18)
[2023-08-18] MEDS: Furosemide 20 MG (2 mL) VIAL SLOW IVP SCH (09:11)
[2023-08-18] MEDS: Meropenem 500 MG in Sodium Chloride 0.9% 100 ML IVPB SCH ×2 (10:37→21:18)
[2023-08-18 18:36] LABS: Actual Bicarbonate (HCO3a) 24.3 mEq/L (22-28); Analyzer IN Cardio OR; Base Excess (BEa) 0.5 mEq/L (-2.0 to +3.0); CO2 Tension 36.5 mmHg (35.0-45.0); Carboxyhemoglobin (COHb) 0.9 gm% (0.0-3.0); Hematocrit-ABG 34 % (36.0-47.0); Hemoglobin (Hb) 11.7 g/dL (12.0-16.0); O2 Tension (PaO2), arterial 64.5 mmHg (> 60.0); Potassium - ABG Lab 4.28 mmol/L (3.70-5.30); pH, Arterial 7.442 (7.35-7.45)
[2023-08-18 18:37] LABS: ALV-art Gradient 39.605 mmHg (0-20); Puncture Site LBA
[2023-08-18] MEDS: Tamsulosin HCl 0.4 MG CAP PO SCH (21:19)
[2023-08-18 23:29] LABS: Vancomycin, Random 15.6 ug/mL (See Comment)
[2023-08-18] MEDS ORDERED: Vancomycin HCl 500 MG in Sodium Chloride 0.9% 100 ML IV SCH (23:59)
[2023-08-19] MEDS: Meropenem 500 MG in Sodium Chloride 0.9% 100 ML IVPB SCH ×2 (09:08→20:51)
[2023-08-19] MEDS: NIFEdipine XL 30 MG ER.TAB PO SCH (09:08)
[2023-08-19] MEDS: Calcium Carbonate 600 MG TAB PO SCH (09:09)
[2023-08-19] MEDS: Heparin 5,000 UNITS/ML VIAL SC SCH ×3 (09:09→20:51)
[2023-08-19] MEDS: Amiodarone 200 MG TAB PO SCH ×3 (09:09→20:51)
[2023-08-19] MEDS: Furosemide 20 MG (2 mL) VIAL SLOW IVP SCH (09:09)
[2023-08-19] MEDS ORDERED: Digoxin 0.5 MG/2 ML AMP SLOW IVP SCH (14:30)
[2023-08-19] MEDS: Acetaminophen 325 MG TAB PO PRN (16:07)
[2023-08-19] MEDS: Tamsulosin HCl 0.4 MG CAP PO SCH (20:51)
[2023-08-19] MEDS: HYDROcodone/Acetaminophen 5/325 mg Tablet PO PRN (20:52)
[2023-08-20 00:42] LABS: Vancomycin, Random 18.1 ug/mL (See Comment)
[2023-08-20] MEDS ORDERED: Vancomycin HCl 500 MG in Sodium Chloride 0.9% 100 ML IV SCH (01:15)
[2023-08-20] MEDS: HYDROcodone/Acetaminophen 5/325 mg Tablet PO PRN (01:35)
[2023-08-20] MEDS: NIFEdipine XL 30 MG ER.TAB PO SCH (09:27)
[2023-08-20] MEDS: Amiodarone 200 MG TAB PO SCH ×3 (09:27→20:39)
[2023-08-20] MEDS: Calcium Carbonate 600 MG TAB PO SCH (09:27)
[2023-08-20] MEDS: traMADol HCl 50 MG TAB PO PRN ×3 (09:28→20:40)
[2023-08-20] MEDS: Furosemide 20 MG (2 mL) VIAL SLOW IVP SCH (09:29)
[2023-08-20] MEDS: Heparin 5,000 UNITS/ML VIAL SC SCH ×3 (09:29→20:40)
[2023-08-20] MEDS: Meropenem 500 MG in Sodium Chloride 0.9% 100 ML IVPB SCH ×2 (09:30→20:39)
[2023-08-20] MEDS: Melatonin 3 MG TAB PO PRN (20:40)
[2023-08-20] MEDS: Tamsulosin HCl 0.4 MG CAP PO SCH (20:40)
[2023-08-21 06:31] LABS: #Basophils 0.1 thou/uL (0.0-0.2); #Eosinphils 0.4 thou/uL (0.0-0.7); #Monocytes 0.9 thou/uL (0.11-0.59); #Neutrophils 11.3 thou/uL (1.40-6.50); %Basophils 0.4 % (0.0-1.0); %Eosinophils 2.5 % (0.0-10.0); %Monocytes 6.3 % (0.0-10.0); %Neutrophils 82.3 % (42.0-75.0); Hematocrit 35.2 % (36.0-47.0); Hemoglobin 10.8 g/dL (12.0-16.0); Mean Corpuscular HGB CONC 30.7 g/dL (32.0-36.0); Mean Corpuscular Hemoglobin 27.1 pg (27.0-31.0); Mean Corpuscular Volume 88.2 fl (78.0-98.0); Mean Platelet Volume 11.1 fL (7.4-10.4); Platelet Count 337 10x3/uL (130-400); RBC Distribution Width 14.1 % (11.5-14.5); Red Blood Cell (RBC) Count 3.99 mill/uL (4.20-5.40); White Blood Cell (WBC) Count 13.8 10x3/uL (4.8-10.8)
[2023-08-21 06:47] LABS: Anion Gap 12 mmol/L (10-20); BUN (Urea Nitrogen) 51 mg/dL (9.8-20.1); Calc. Creatinine Clearance 20 mL/min (70-130); Calcium 8.2 mg/dL (7.8-10.44); Carbon Dioxide 22 mmol/L (23-31); Chloride 105 mmol/L (98-107); Estimated GFR 15; Glucose 73 mg/dL (83-110); Potassium 4.6 mmol/L (3.5-5.1); Sodium 134 mmol/L (136-145)
[2023-08-21] MEDS: Meropenem 500 MG in Sodium Chloride 0.9% 100 ML IVPB SCH ×2 (09:04→20:47)
[2023-08-21] MEDS: NIFEdipine XL 30 MG ER.TAB PO SCH (09:05)
[2023-08-21] MEDS: Calcium Carbonate 600 MG TAB PO SCH (09:05)
[2023-08-21] MEDS: Heparin 5,000 UNITS/ML VIAL SC SCH ×3 (09:05→20:47)
[2023-08-21] MEDS: Amiodarone 200 MG TAB PO SCH ×3 (09:05→20:47)
[2023-08-21] MEDS: Furosemide 20 MG (2 mL) VIAL SLOW IVP SCH (09:06)
[2023-08-21] MEDS: diphenhydrAMINE 25 MG CAP PO PRN ×2 (10:00→16:12)
[2023-08-21] MEDS: Tamsulosin HCl 0.4 MG CAP PO SCH (20:47)
[2023-08-21] MEDS: Melatonin 3 MG TAB PO PRN (20:47)
[2023-08-22] MEDS: Calcium Carbonate 600 MG TAB PO SCH (10:06)
[2023-08-22] MEDS: Heparin 5,000 UNITS/ML VIAL SC SCH ×3 (10:06→20:21)
[2023-08-22] MEDS: Meropenem 500 MG in Sodium Chloride 0.9% 100 ML IVPB SCH ×2 (10:06→20:19)
[2023-08-22] MEDS: Furosemide 20 MG (2 mL) VIAL SLOW IVP SCH (10:06)
[2023-08-22] MEDS: Amiodarone 200 MG TAB PO SCH ×3 (10:06→20:20)
[2023-08-22 12:51] LABS: #Basophils 0.1 thou/uL (0.0-0.2); #Eosinphils 0.2 thou/uL (0.0-0.7); #Monocytes 0.7 thou/uL (0.11-0.59); #Neutrophils 8.7 thou/uL (1.40-6.50); %Basophils 0.5 % (0.0-1.0); %Eosinophils 1.9 % (0.0-10.0); %Lymphocytes 9.9 % (21.0-51.0); %Monocytes 5.9 % (0.0-10.0); %Neutrophils 79.7 % (42.0-75.0); Hematocrit 38.2 % (36.0-47.0); Hemoglobin 11.2 g/dL (12.0-16.0); Mean Corpuscular HGB CONC 29.3 g/dL (32.0-36.0); Mean Corpuscular Hemoglobin 27.6 pg (27.0-31.0); Mean Corpuscular Volume 94.1 fl (78.0-98.0); Mean Platelet Volume 10.6 fL (7.4-10.4); Platelet Count 346 10x3/uL (130-400); RBC Distribution Width 14.1 % (11.5-14.5); Red Blood Cell (RBC) Count 4.06 mill/uL (4.20-5.40)
[2023-08-22 13:20] LABS: ALT (SGPT) 12 U/L (8-55); AST (SGOT) 16 U/L (5-34); Albumin 2.4 g/dL (3.4-4.8); Alkaline Phosphatase 160 U/L (40-110); Anion Gap 15 mmol/L (10-20); BUN (Urea Nitrogen) 35 mg/dL (9.8-20.1); Bilirubin, Total 0.3 mg/dL (0.2-1.2); Calc. Creatinine Clearance 35 mL/min (70-130); Calcium 8.3 mg/dL (7.8-10.44); Carbon Dioxide 21 mmol/L (23-31); Chloride 106 mmol/L (98-107); Estimated GFR 30; Globulin 3.7 g/dL (2.4-3.5); Glucose 87 mg/dL (83-110); Potassium 4.8 mmol/L (3.5-5.1); Protein, Total 6.1 g/dL (5.8-8.1); Sodium 137 mmol/L (136-145)
[2023-08-22] MEDS: Albumin 25% 25 GM (100 mL) BOT IVPB SCH ×2 (17:51→23:33)
[2023-08-22] MEDS: Melatonin 3 MG TAB PO PRN (20:20)
[2023-08-22] MEDS: Tamsulosin HCl 0.4 MG CAP PO SCH (20:20)
[2023-08-22] MEDS: Acetaminophen 325 MG TAB PO PRN (20:20)
[2023-08-22] MEDS: diphenhydrAMINE 25 MG CAP PO PRN (20:20)
[2023-08-22] MEDS: HYDROcodone/Acetaminophen 5/325 mg Tablet PO PRN (21:41)
[2023-08-23] MEDS: Albumin 25% 25 GM (100 mL) BOT IVPB SCH ×2 (05:54→13:32)
[2023-08-23 06:17] LABS: #Basophils 0.1 thou/uL (0.0-0.2); #Eosinphils 0.3 thou/uL (0.0-0.7); #Monocytes 0.6 thou/uL (0.11-0.59); #Neutrophils 7.4 thou/uL (1.40-6.50); %Basophils 0.5 % (0.0-1.0); %Eosinophils 2.7 % (0.0-10.0); %Lymphocytes 12.3 % (21.0-51.0); %Monocytes 5.9 % (0.0-10.0); %Neutrophils 77.3 % (42.0-75.0); Hematocrit 30.2 % (36.0-47.0); Hemoglobin 9.1 g/dL (12.0-16.0); Mean Corpuscular HGB CONC 30.1 g/dL (32.0-36.0); Mean Corpuscular Hemoglobin 27.1 pg (27.0-31.0); Mean Platelet Volume 10.9 fL (7.4-10.4); Platelet Count 320 10x3/uL (130-400); Red Blood Cell (RBC) Count 3.36 mill/uL (4.20-5.40); White Blood Cell (WBC) Count 9.5 10x3/uL (4.8-10.8)
[2023-08-23 06:18] LABS: Mean Corpuscular Volume 89.9 fl (78.0-98.0)
[2023-08-23 06:54] LABS: ALT (SGPT) 9 U/L (8-55); AST (SGOT) 14 U/L (5-34); Albumin 2.9 g/dL (3.4-4.8); Alkaline Phosphatase 121 U/L (40-110); Anion Gap 12 mmol/L (10-20); BUN (Urea Nitrogen) 30 mg/dL (9.8-20.1); Bilirubin, Total 0.2 mg/dL (0.2-1.2); Calc. Creatinine Clearance 47 mL/min (70-130); Calcium 8.3 mg/dL (7.8-10.44); Carbon Dioxide 24 mmol/L (23-31); Chloride 107 mmol/L (98-107); Estimated GFR 42; Globulin 2.9 g/dL (2.4-3.5); Glucose 92 mg/dL (83-110); Potassium 4.1 mmol/L (3.5-5.1); Protein, Total 5.8 g/dL (5.8-8.1); Sodium 139 mmol/L (136-145)
[2023-08-23] MEDS: Heparin 5,000 UNITS/ML VIAL SC SCH (09:56)
[2023-08-23] MEDS: Calcium Carbonate 600 MG TAB PO SCH (09:57)
[2023-08-23] MEDS: Amiodarone 200 MG TAB PO SCH ×3 (09:58→20:41)
[2023-08-23] MEDS: Meropenem 500 MG in Sodium Chloride 0.9% 100 ML IVPB SCH (10:07)
[2023-08-23] MEDS: Meropenem 1 GM in Sodium Chloride 0.9% 100 ML IVPB SCH (20:41)
[2023-08-23] MEDS: Tamsulosin HCl 0.4 MG CAP PO SCH (20:41)
[2023-08-23] MEDS: HYDROcodone/Acetaminophen 5/325 mg Tablet PO PRN (20:41)
[2023-08-23] MEDS: diphenhydrAMINE 25 MG CAP PO PRN (20:41)
[2023-08-23] MEDS: Melatonin 3 MG TAB PO PRN (20:41)
[2023-08-24 06:35] LABS: #Eosinphils 0.2 thou/uL (0.0-0.7); #Monocytes 0.6 thou/uL (0.11-0.59); #Neutrophils 7.4 thou/uL (1.40-6.50); %Basophils 0.4 % (0.0-1.0); %Eosinophils 2.1 % (0.0-10.0); %Lymphocytes 11.1 % (21.0-51.0); %Monocytes 6.2 % (0.0-10.0); %Neutrophils 79.1 % (42.0-75.0); Hematocrit 31.5 % (36.0-47.0); Hemoglobin 9.7 g/dL (12.0-16.0); Mean Corpuscular HGB CONC 30.8 g/dL (32.0-36.0); Mean Corpuscular Hemoglobin 27.9 pg (27.0-31.0); Mean Corpuscular Volume 90.5 fl (78.0-98.0); Mean Platelet Volume 10.7 fL (7.4-10.4); Platelet Count 356 10x3/uL (130-400); RBC Distribution Width 14.2 % (11.5-14.5); Red Blood Cell (RBC) Count 3.48 mill/uL (4.20-5.40); White Blood Cell (WBC) Count 9.4 10x3/uL (4.8-10.8)
[2023-08-24 07:01] LABS: Anion Gap 13 mmol/L (10-20); BUN (Urea Nitrogen) 20 mg/dL (9.8-20.1); Calc. Creatinine Clearance 72 mL/min (70-130); Calcium 8.6 mg/dL (7.8-10.44); Carbon Dioxide 24 mmol/L (23-31); Chloride 108 mmol/L (98-107); Estimated GFR 65; Glucose 85 mg/dL (83-110); Potassium 4.3 mmol/L (3.5-5.1); Sodium 141 mmol/L (136-145)
[2023-08-24] MEDS: Amiodarone 200 MG TAB PO SCH ×2 (09:05→16:48)
[2023-08-24] MEDS: Calcium Carbonate 600 MG TAB PO SCH (09:06)
[2023-08-24] MEDS: Meropenem 1 GM in Sodium Chloride 0.9% 100 ML IVPB SCH ×2 (09:07→19:50)
[2023-08-24 09:18] LABS: Magnesium 1.8 mg/dL (1.6-2.6)
[2023-08-24] MEDS ORDERED: Magnesium Sulfate 3 GM, Admixture Fee 1 EACH in Sodium Chloride 0.9% 100 ML IVPB SCH (11:45)
[2023-08-24] MEDS ORDERED: Furosemide 20 MG (2 mL) VIAL SLOW IVP SCH (17:00)
[2023-08-24] MEDS ORDERED: Carvedilol 6.25 MG TAB PO SCH (17:15)
[2023-08-24] MEDS: Albumin 25% 25 GM (100 mL) BOT IVPB SCH ×2 (18:12→23:16)
[2023-08-24] MEDS: Tamsulosin HCl 0.4 MG CAP PO SCH (19:54)
[2023-08-24] MEDS ORDERED: Amiodarone 200 MG TAB PO SCH (21:00)
[2023-08-24] MEDS: Melatonin 3 MG TAB PO PRN (21:52)
[2023-08-24] MEDS ORDERED: Melatonin 3 MG TAB PO SCH (23:00)
[2023-08-25] MEDS ORDERED: traZODone HCl 50 MG TAB PO SCH (02:00)
[2023-08-25 04:41] LABS: #Basophils 0.1 thou/uL (0.0-0.2); #Eosinphils 0.3 thou/uL (0.0-0.7); #Monocytes 0.5 thou/uL (0.11-0.59); #Neutrophils 7.7 thou/uL (1.40-6.50); %Basophils 0.5 % (0.0-1.0); %Eosinophils 2.6 % (0.0-10.0); %Lymphocytes 10.3 % (21.0-51.0); %Monocytes 5.6 % (0.0-10.0); %Neutrophils 80.2 % (42.0-75.0); Hematocrit 30.9 % (36.0-47.0); Hemoglobin 9.5 g/dL (12.0-16.0); Mean Corpuscular HGB CONC 30.7 g/dL (32.0-36.0); Mean Corpuscular Hemoglobin 27.5 pg (27.0-31.0); Mean Corpuscular Volume 89.6 fl (78.0-98.0); Mean Platelet Volume 10.6 fL (7.4-10.4); Platelet Count 353 10x3/uL (130-400); RBC Distribution Width 14.2 % (11.5-14.5); Red Blood Cell (RBC) Count 3.45 mill/uL (4.20-5.40); White Blood Cell (WBC) Count 9.6 10x3/uL (4.8-10.8)
[2023-08-25 05:08] LABS: Anion Gap 12 mmol/L (10-20); BUN (Urea Nitrogen) 17 mg/dL (9.8-20.1); Calc. Creatinine Clearance 74 mL/min (70-130); Calcium 8.8 mg/dL (7.8-10.44); Carbon Dioxide 25 mmol/L (23-31); Chloride 108 mmol/L (98-107); Estimated GFR 67; Glucose 94 mg/dL (83-110); Potassium 4.2 mmol/L (3.5-5.1); Sodium 141 mmol/L (136-145)
[2023-08-25] MEDS: Furosemide 20 MG (2 mL) VIAL SLOW IVP SCH ×2 (05:51→13:28)
[2023-08-25] MEDS: Albumin 25% 25 GM (100 mL) BOT IVPB SCH ×2 (05:52→13:28)
[2023-08-25] MEDS: Calcium Carbonate 600 MG TAB PO SCH (09:57)
[2023-08-25] MEDS: Amiodarone 200 MG TAB PO SCH (09:58)
[2023-08-25] MEDS: Meropenem 1 GM in Sodium Chloride 0.9% 100 ML IVPB SCH ×2 (09:59→16:57)
[2023-08-25] MEDS: Carvedilol 6.25 MG TAB PO SCH ×2 (09:59→16:57)
[2023-08-25] MEDS: HYDROcodone/Acetaminophen 5/325 mg Tablet PO PRN ×2 (13:24→21:07)
[2023-08-25] MEDS: diphenhydrAMINE 25 MG CAP PO PRN (16:57)
[2023-08-25] MEDS: Apixaban 5 MG TAB PO SCH (21:03)
[2023-08-25] MEDS: Tamsulosin HCl 0.4 MG CAP PO SCH (21:03)
[2023-08-25] MEDS: Melatonin 3 MG TAB PO PRN (21:04)
[2023-08-25] MEDS: traMADol HCl 50 MG TAB PO PRN (21:04)
[2023-08-26] MEDS: Meropenem 1 GM in Sodium Chloride 0.9% 100 ML IVPB SCH ×3 (03:11→17:18)
[2023-08-26 06:00] LABS: #Basophils 0.1 thou/uL (0.0-0.2); #Eosinphils 0.3 thou/uL (0.0-0.7); #Monocytes 0.6 thou/uL (0.11-0.59); #Neutrophils 5.5 thou/uL (1.40-6.50); %Basophils 0.8 % (0.0-1.0); %Eosinophils 3.9 % (0.0-10.0); %Lymphocytes 16.8 % (21.0-51.0); %Monocytes 7.8 % (0.0-10.0); %Neutrophils 70.1 % (42.0-75.0); Hematocrit 32.4 % (36.0-47.0); Hemoglobin 9.6 g/dL (12.0-16.0); Mean Corpuscular HGB CONC 29.6 g/dL (32.0-36.0); Mean Corpuscular Hemoglobin 26.9 pg (27.0-31.0); Mean Corpuscular Volume 90.8 fl (78.0-98.0); Mean Platelet Volume 10.8 fL (7.4-10.4); Platelet Count 310 10x3/uL (130-400); RBC Distribution Width 14.3 % (11.5-14.5); Red Blood Cell (RBC) Count 3.57 mill/uL (4.20-5.40); White Blood Cell (WBC) Count 7.8 10x3/uL (4.8-10.8)
[2023-08-26] MEDS: Furosemide 20 MG (2 mL) VIAL SLOW IVP SCH ×2 (06:15→15:09)
[2023-08-26 06:24] LABS: Calcium 8.8 mg/dL (7.8-10.44); Chloride 107 mmol/L (98-107); Glucose 84 mg/dL (83-110); Sodium 141 mmol/L (136-145)
[2023-08-26 06:25] LABS: Carbon Dioxide 27 mmol/L (23-31)
[2023-08-26 06:27] LABS: Calc. Creatinine Clearance 70 mL/min (70-130); Estimated GFR 65
[2023-08-26 06:28] LABS: BUN (Urea Nitrogen) 18 mg/dL (9.8-20.1)
[2023-08-26 06:29] LABS: Magnesium 1.8 mg/dL (1.6-2.6)
[2023-08-26 06:34] LABS: Anion Gap 10 mmol/L (10-20)
[2023-08-26] MEDS: Apixaban 5 MG TAB PO SCH ×2 (09:04→20:39)
[2023-08-26] MEDS: Amiodarone 200 MG TAB PO SCH (09:04)
[2023-08-26] MEDS: Calcium Carbonate 600 MG TAB PO SCH (09:04)
[2023-08-26] MEDS: Carvedilol 6.25 MG TAB PO SCH ×2 (09:04→17:18)
[2023-08-26] MEDS: Tamsulosin HCl 0.4 MG CAP PO SCH (20:39)
[2023-08-26] MEDS: Melatonin 3 MG TAB PO PRN (20:39)
[2023-08-27] MEDS: Meropenem 1 GM in Sodium Chloride 0.9% 100 ML IVPB SCH ×3 (02:47→17:26)
[2023-08-27 05:23] LABS: #Basophils 0.1 thou/uL (0.0-0.2); #Eosinphils 0.3 thou/uL (0.0-0.7); #Monocytes 0.5 thou/uL (0.11-0.59); #Neutrophils 6.9 thou/uL (1.40-6.50); %Basophils 0.7 % (0.0-1.0); %Eosinophils 2.9 % (0.0-10.0); %Lymphocytes 13.4 % (21.0-51.0); %Neutrophils 76.2 % (42.0-75.0); Hematocrit 34.1 % (36.0-47.0); Hemoglobin 10.3 g/dL (12.0-16.0); Mean Corpuscular HGB CONC 30.2 g/dL (32.0-36.0); Mean Corpuscular Hemoglobin 27.4 pg (27.0-31.0); Mean Corpuscular Volume 90.7 fl (78.0-98.0); Mean Platelet Volume 10.8 fL (7.4-10.4); Platelet Count 366 10x3/uL (130-400); RBC Distribution Width 14.1 % (11.5-14.5); Red Blood Cell (RBC) Count 3.76 mill/uL (4.20-5.40); White Blood Cell (WBC) Count 9.1 10x3/uL (4.8-10.8)
[2023-08-27] MEDS: Furosemide 20 MG (2 mL) VIAL SLOW IVP SCH (06:07)
[2023-08-27 07:06] LABS: Anion Gap 13 mmol/L (10-20); BUN (Urea Nitrogen) 17 mg/dL (9.8-20.1); Calc. Creatinine Clearance 69 mL/min (70-130); Calcium 8.6 mg/dL (7.8-10.44); Carbon Dioxide 26 mmol/L (23-31); Chloride 108 mmol/L (98-107); Estimated GFR 63; Glucose 85 mg/dL (83-110); Potassium 4.1 mmol/L (3.5-5.1); Sodium 143 mmol/L (136-145)
[2023-08-27] MEDS: Calcium Carbonate 600 MG TAB PO SCH (08:26)
[2023-08-27] MEDS: Amiodarone 200 MG TAB PO SCH (08:27)
[2023-08-27] MEDS: Carvedilol 6.25 MG TAB PO SCH ×2 (08:27→17:27)
[2023-08-27] MEDS: Apixaban 5 MG TAB PO SCH ×2 (08:27→21:57)
[2023-08-27] MEDS: Furosemide 40 MG TAB PO SCH (14:17)
[2023-08-27] MEDS: Potassium Citrate 10 MEQ TAB PO SCH (21:57)
[2023-08-27] MEDS: Tamsulosin HCl 0.4 MG CAP PO SCH (21:57)
[2023-08-27] MEDS: HYDROcodone/Acetaminophen 5/325 mg Tablet PO PRN (22:04)
[2023-08-28] MEDS: Meropenem 1 GM in Sodium Chloride 0.9% 100 ML IVPB SCH ×3 (03:20→20:58)
[2023-08-28 04:42] LABS: #Basophils 0.1 thou/uL (0.0-0.2); #Eosinphils 0.3 thou/uL (0.0-0.7); #Monocytes 0.6 thou/uL (0.11-0.59); #Neutrophils 6.3 thou/uL (1.40-6.50); %Basophils 0.6 % (0.0-1.0); %Eosinophils 3.8 % (0.0-10.0); %Lymphocytes 16.4 % (21.0-51.0); %Monocytes 6.3 % (0.0-10.0); %Neutrophils 72.3 % (42.0-75.0); Hematocrit 35.3 % (36.0-47.0); Mean Corpuscular HGB CONC 31.2 g/dL (32.0-36.0); Mean Corpuscular Volume 89.8 fl (78.0-98.0); Mean Platelet Volume 10.8 fL (7.4-10.4); Platelet Count 354 10x3/uL (130-400); Red Blood Cell (RBC) Count 3.93 mill/uL (4.20-5.40); White Blood Cell (WBC) Count 8.7 10x3/uL (4.8-10.8)
[2023-08-28 05:14] LABS: Anion Gap 14 mmol/L (10-20); BUN (Urea Nitrogen) 18 mg/dL (9.8-20.1); Calc. Creatinine Clearance 66 mL/min (70-130); Calcium 8.9 mg/dL (7.8-10.44); Carbon Dioxide 28 mmol/L (23-31); Chloride 102 mmol/L (98-107); Estimated GFR 60; Glucose 87 mg/dL (83-110); Magnesium 1.6 mg/dL (1.6-2.6); Potassium 3.9 mmol/L (3.5-5.1); Sodium 140 mmol/L (136-145)
[2023-08-28] MEDS: Amiodarone 200 MG TAB PO SCH (10:04)
[2023-08-28] MEDS: Potassium Citrate 10 MEQ TAB PO SCH ×2 (10:04→20:59)
[2023-08-28] MEDS: Carvedilol 6.25 MG TAB PO SCH ×2 (10:04→17:20)
[2023-08-28] MEDS: Furosemide 40 MG TAB PO SCH ×2 (10:04→15:28)
[2023-08-28] MEDS: Calcium Carbonate 600 MG TAB PO SCH (10:04)
[2023-08-28] MEDS: Apixaban 5 MG TAB PO SCH ×2 (10:04→20:59)
[2023-08-28] MEDS ORDERED: Electrolyte Replacement Protocol FS PRN (11:30)
[2023-08-28] MEDS: HYDROcodone/Acetaminophen 5/325 mg Tablet PO PRN ×2 (12:10→20:59)
[2023-08-28] MEDS ORDERED: Magnesium 2 GM/50 ML(in water) 2 GM in Premix 1 BAG IVPB SCH (13:15)
[2023-08-28] MEDS: Tamsulosin HCl 0.4 MG CAP PO SCH (20:59)
[2023-08-28] MEDS: Magnesium Oxide 400 MG TAB PO SCH (20:59)
[2023-08-29] MEDS: Melatonin 3 MG TAB PO PRN ×2 (01:53→20:47)
[2023-08-29 05:18] LABS: #Basophils 0.1 thou/uL (0.0-0.2); #Eosinphils 0.3 thou/uL (0.0-0.7); #Monocytes 0.5 thou/uL (0.11-0.59); #Neutrophils 5.1 thou/uL (1.40-6.50); %Basophils 0.8 % (0.0-1.0); %Eosinophils 4.3 % (0.0-10.0); %Lymphocytes 18.2 % (21.0-51.0); %Monocytes 7.2 % (0.0-10.0); Hematocrit 33.9 % (36.0-47.0); Hemoglobin 10.2 g/dL (12.0-16.0); Mean Corpuscular HGB CONC 30.1 g/dL (32.0-36.0); Mean Corpuscular Hemoglobin 27.1 pg (27.0-31.0); Mean Corpuscular Volume 90.2 fl (78.0-98.0); Mean Platelet Volume 10.9 fL (7.4-10.4); Platelet Count 317 10x3/uL (130-400); RBC Distribution Width 14.3 % (11.5-14.5); Red Blood Cell (RBC) Count 3.76 mill/uL (4.20-5.40); White Blood Cell (WBC) Count 7.4 10x3/uL (4.8-10.8)
[2023-08-29 06:29] LABS: ALT (SGPT) Less than 7 U/L (8-55); AST (SGOT) 12 U/L (5-34); Albumin 2.8 g/dL (3.4-4.8); Alkaline Phosphatase 74 U/L (40-110); Anion Gap 15 mmol/L (10-20); BUN (Urea Nitrogen) 19 mg/dL (9.8-20.1); Bilirubin, Total 0.4 mg/dL (0.2-1.2); Calc. Creatinine Clearance 62 mL/min (70-130); Calcium 8.6 mg/dL (7.8-10.44); Carbon Dioxide 27 mmol/L (23-31); Chloride 103 mmol/L (98-107); Estimated GFR 56; Globulin 2.6 g/dL (2.4-3.5); Glucose 74 mg/dL (83-110); Magnesium 1.9 mg/dL (1.6-2.6); Potassium 4.2 mmol/L (3.5-5.1); Protein, Total 5.4 g/dL (5.8-8.1); Sodium 141 mmol/L (136-145)
[2023-08-29] MEDS ORDERED: Magnesium 2 GM/50 ML(in water) 2 GM in Premix 1 BAG IVPB SCH (08:00)
[2023-08-29] MEDS: Potassium Citrate 10 MEQ TAB PO SCH ×2 (11:05→20:47)
[2023-08-29] MEDS: Calcium Carbonate 600 MG TAB PO SCH (11:05)
[2023-08-29] MEDS: Apixaban 5 MG TAB PO SCH ×2 (11:05→20:47)
[2023-08-29] MEDS: Magnesium Oxide 400 MG TAB PO SCH (11:06)
[2023-08-29] MEDS: Amiodarone 200 MG TAB PO SCH (11:09)
[2023-08-29] MEDS: Furosemide 40 MG TAB PO SCH ×2 (11:12→17:25)
[2023-08-29] MEDS: Carvedilol 6.25 MG TAB PO SCH (11:14)
[2023-08-29] MEDS: Meropenem 1 GM in Sodium Chloride 0.9% 100 ML IVPB SCH ×2 (12:22→20:47)
[2023-08-29] MEDS: Tamsulosin HCl 0.4 MG CAP PO SCH (20:48)
[2023-08-30 03:55] LABS: #Basophils 0.1 thou/uL (0.0-0.2); #Eosinphils 0.4 thou/uL (0.0-0.7); #Monocytes 0.5 thou/uL (0.11-0.59); #Neutrophils 5.1 thou/uL (1.40-6.50); %Basophils 0.7 % (0.0-1.0); %Eosinophils 4.9 % (0.0-10.0); %Lymphocytes 18.1 % (21.0-51.0); %Monocytes 7.3 % (0.0-10.0); %Neutrophils 68.5 % (42.0-75.0); Hematocrit 34.4 % (36.0-47.0); Hemoglobin 10.5 g/dL (12.0-16.0); Mean Corpuscular HGB CONC 30.5 g/dL (32.0-36.0); Mean Corpuscular Hemoglobin 27.8 pg (27.0-31.0); Mean Platelet Volume 10.2 fL (7.4-10.4); Platelet Count 270 10x3/uL (130-400); RBC Distribution Width 14.3 % (11.5-14.5); Red Blood Cell (RBC) Count 3.78 mill/uL (4.20-5.40); White Blood Cell (WBC) Count 7.4 10x3/uL (4.8-10.8)
[2023-08-30 04:20] LABS: Anion Gap 10 mmol/L (10-20); BUN (Urea Nitrogen) 19 mg/dL (9.8-20.1); Calc. Creatinine Clearance 63 mL/min (70-130); Calcium 8.5 mg/dL (7.8-10.44); Carbon Dioxide 32 mmol/L (23-31); Chloride 101 mmol/L (98-107); Estimated GFR 57; Glucose 93 mg/dL (83-110); Magnesium 2.1 mg/dL (1.6-2.6); Potassium 4.1 mmol/L (3.5-5.1); Sodium 139 mmol/L (136-145)
[2023-08-30] MEDS: Furosemide 40 MG TAB PO SCH ×2 (09:05→13:35)
[2023-08-30] MEDS: Potassium Citrate 10 MEQ TAB PO SCH ×2 (09:05→20:56)
[2023-08-30] MEDS: Apixaban 5 MG TAB PO SCH (09:05)
[2023-08-30] MEDS: Calcium Carbonate 600 MG TAB PO SCH (09:05)
[2023-08-30] MEDS: Meropenem 1 GM in Sodium Chloride 0.9% 100 ML IVPB SCH ×2 (09:05→20:56)
[2023-08-30] MEDS: Amiodarone 200 MG TAB PO SCH (09:06)
[2023-08-30] MEDS: Tamsulosin HCl 0.4 MG CAP PO SCH (20:56)
[2023-08-30] MEDS: Clotrimazole 1 % Cream 30 GM TUBE TOP SCH (20:56)
[2023-08-31 04:29] LABS: #Basophils 0.1 thou/uL (0.0-0.2); #Eosinphils 0.5 thou/uL (0.0-0.7); #Monocytes 0.6 thou/uL (0.11-0.59); #Neutrophils 5.1 thou/uL (1.40-6.50); %Basophils 0.9 % (0.0-1.0); %Eosinophils 6.3 % (0.0-10.0); %Lymphocytes 18.4 % (21.0-51.0); %Monocytes 7.3 % (0.0-10.0); %Neutrophils 66.7 % (42.0-75.0); Hematocrit 35.3 % (36.0-47.0); Hemoglobin 10.9 g/dL (12.0-16.0); Mean Corpuscular HGB CONC 30.9 g/dL (32.0-36.0); Mean Corpuscular Hemoglobin 27.5 pg (27.0-31.0); Mean Corpuscular Volume 88.9 fl (78.0-98.0); Mean Platelet Volume 10.7 fL (7.4-10.4); Platelet Count 275 10x3/uL (130-400); RBC Distribution Width 14.1 % (11.5-14.5); Red Blood Cell (RBC) Count 3.97 mill/uL (4.20-5.40); White Blood Cell (WBC) Count 7.6 10x3/uL (4.8-10.8)
[2023-08-31 04:57] LABS: Anion Gap 11 mmol/L (10-20); BUN (Urea Nitrogen) 20 mg/dL (9.8-20.1); Calc. Creatinine Clearance 66 mL/min (70-130); Calcium 8.6 mg/dL (7.8-10.44); Carbon Dioxide 32 mmol/L (23-31); Chloride 99 mmol/L (98-107); Estimated GFR 60; Glucose 92 mg/dL (83-110); Magnesium 1.9 mg/dL (1.6-2.6); Potassium 4.3 mmol/L (3.5-5.1); Sodium 138 mmol/L (136-145)
[2023-08-31] MEDS ORDERED: Magnesium 2 GM/50 ML(in water) 2 GM in Premix 1 BAG IVPB SCH (05:45)
[2023-08-31] MEDS: Potassium Citrate 10 MEQ TAB PO SCH ×2 (09:21→19:34)
[2023-08-31] MEDS: Furosemide 40 MG TAB PO SCH ×2 (09:22→13:39)
[2023-08-31] MEDS: Meropenem 1 GM in Sodium Chloride 0.9% 100 ML IVPB SCH ×2 (09:22→19:39)
[2023-08-31] MEDS: Amiodarone 200 MG TAB PO SCH (09:22)
[2023-08-31] MEDS: Calcium Carbonate 600 MG TAB PO SCH (09:22)
[2023-08-31] MEDS: Clotrimazole 1 % Cream 30 GM TUBE TOP SCH ×2 (09:23→19:36)
[2023-08-31] MEDS ORDERED: Polyvinyl Alcohol 1.4%/Povidone 0.6% Opth Drops EA EYE PRN (17:12)
[2023-08-31] MEDS: Tamsulosin HCl 0.4 MG CAP PO SCH (19:35)
[2023-08-31] MEDS: Melatonin 3 MG TAB PO PRN (19:35)
[2023-09-01 04:33] LABS: #Eosinphils 0.5 thou/uL (0.0-0.7); #Monocytes 0.6 thou/uL (0.11-0.59); #Neutrophils 4.7 thou/uL (1.40-6.50); %Basophils 0.6 % (0.0-1.0); %Eosinophils 6.6 % (0.0-10.0); %Lymphocytes 18.5 % (21.0-51.0); %Monocytes 7.9 % (0.0-10.0); %Neutrophils 66.1 % (42.0-75.0); Hematocrit 34.9 % (36.0-47.0); Hemoglobin 10.8 g/dL (12.0-16.0); Mean Corpuscular HGB CONC 30.9 g/dL (32.0-36.0); Mean Corpuscular Hemoglobin 27.3 pg (27.0-31.0); Mean Corpuscular Volume 88.4 fl (78.0-98.0); Mean Platelet Volume 10.6 fL (7.4-10.4); Platelet Count 267 10x3/uL (130-400); RBC Distribution Width 14.2 % (11.5-14.5); Red Blood Cell (RBC) Count 3.95 mill/uL (4.20-5.40); White Blood Cell (WBC) Count 7.1 10x3/uL (4.8-10.8)
[2023-09-01 04:53] LABS: Anion Gap 9 mmol/L (10-20); BUN (Urea Nitrogen) 20 mg/dL (9.8-20.1); Calc. Creatinine Clearance 63 mL/min (70-130); Calcium 9.1 mg/dL (7.8-10.44); Carbon Dioxide 34 mmol/L (23-31); Chloride 98 mmol/L (98-107); Estimated GFR 57; Glucose 89 mg/dL (83-110); Potassium 4.1 mmol/L (3.5-5.1); Sodium 137 mmol/L (136-145)
[2023-09-01] MEDS ORDERED: Magnesium 2 GM/50 ML(in water) 2 GM in Premix 1 BAG IVPB SCH (07:45)
[2023-09-01] MEDS: Calcium Carbonate 600 MG TAB PO SCH (08:28)
[2023-09-01] MEDS: Potassium Citrate 10 MEQ TAB PO SCH ×2 (08:29→20:51)
[2023-09-01] MEDS: Furosemide 40 MG TAB PO SCH ×2 (08:29→14:18)
[2023-09-01] MEDS: Clotrimazole 1 % Cream 30 GM TUBE TOP SCH ×2 (08:29→20:51)
[2023-09-01] MEDS: Meropenem 1 GM in Sodium Chloride 0.9% 100 ML IVPB SCH ×2 (09:44→20:50)
[2023-09-01] MEDS: Melatonin 3 MG TAB PO PRN (20:51)
[2023-09-01] MEDS: Tamsulosin HCl 0.4 MG CAP PO SCH (20:51)
[2023-09-02 05:39] LABS: #Basophils 0.1 thou/uL (0.0-0.2); #Eosinphils 0.7 thou/uL (0.0-0.7); #Monocytes 0.5 thou/uL (0.11-0.59); #Neutrophils 4.5 thou/uL (1.40-6.50); %Basophils 0.7 % (0.0-1.0); %Eosinophils 9.4 % (0.0-10.0); %Lymphocytes 18.7 % (21.0-51.0); %Monocytes 7.6 % (0.0-10.0); %Neutrophils 63.2 % (42.0-75.0); Hemoglobin 11.3 g/dL (12.0-16.0); Mean Corpuscular HGB CONC 31.4 g/dL (32.0-36.0); Mean Corpuscular Hemoglobin 27.8 pg (27.0-31.0); Mean Corpuscular Volume 88.5 fl (78.0-98.0); Mean Platelet Volume 10.3 fL (7.4-10.4); Platelet Count 265 10x3/uL (130-400); RBC Distribution Width 14.3 % (11.5-14.5); Red Blood Cell (RBC) Count 4.07 mill/uL (4.20-5.40); White Blood Cell (WBC) Count 7.1 10x3/uL (4.8-10.8)
[2023-09-02 05:56] LABS: Anion Gap 10 mmol/L (10-20); BUN (Urea Nitrogen) 20 mg/dL (9.8-20.1); Calc. Creatinine Clearance 59 mL/min (70-130); Calcium 9.3 mg/dL (7.8-10.44); Carbon Dioxide 32 mmol/L (23-31); Chloride 99 mmol/L (98-107); Estimated GFR 53; Glucose 89 mg/dL (83-110); Magnesium 2.2 mg/dL (1.6-2.6); Potassium 4.4 mmol/L (3.5-5.1); Sodium 137 mmol/L (136-145)
[2023-09-02] MEDS: Furosemide 40 MG TAB PO SCH ×2 (09:40→14:00)
[2023-09-02] MEDS: Potassium Citrate 10 MEQ TAB PO SCH ×2 (09:40→19:59)
[2023-09-02] MEDS: Clotrimazole 1 % Cream 30 GM TUBE TOP SCH ×2 (09:40→19:59)
[2023-09-02] MEDS: Calcium Carbonate 600 MG TAB PO SCH (09:40)
[2023-09-02] MEDS: Meropenem 1 GM in Sodium Chloride 0.9% 100 ML IVPB SCH ×2 (10:25→20:00)
[2023-09-02] MEDS ORDERED: Lidocaine 2% PF 5 ML VIAL ONE (13:02)
[2023-09-02] MEDS ORDERED: PROPOFOL 20 ML ONE (13:02)
[2023-09-02] MEDS ORDERED: Rocuronium Bromide 10 MG/ML (10ML VIAL) ONE (13:02)
[2023-09-02] MEDS ORDERED: fentaNYL PF 100 MCG/2 ML SYRINGE ONE (13:03)
[2023-09-02] MEDS ORDERED: dilTIAZem 25 MG/5 ML VIAL ONE (13:52)
[2023-09-02] MEDS ORDERED: Metoprolol Tartrate 5 MG (5 mL) VIAL ONE (14:14)
[2023-09-02] MEDS ORDERED: PHENYLEPHRINE-NS 100 MCG/ML 10 ML SYRINGE ONE (14:36)
[2023-09-02] MEDS ORDERED: Ondansetron HCl/PF 4 MG/2 ML Vial IVP PRN (14:41)
[2023-09-02] MEDS ORDERED: Promethazine HCl 25 MG/ML VIAL IM PRN (14:41)
[2023-09-02] MEDS ORDERED: SUGAMMADEX SODIUM 200 MG/2 ML VIAL ONE (15:07)
[2023-09-02] MEDS ORDERED: Ondansetron PF 4 MG/2 ML Vial ONE (16:06)
[2023-09-02] MEDS: Tamsulosin HCl 0.4 MG CAP PO SCH (19:59)
[2023-09-03] MEDS ORDERED: Sodium Chloride 0.9% 1,000 ML IV SCH ×2 (00:45→03:15)
[2023-09-03 01:22] LABS: #Monocytes 0.9 thou/uL (0.11-0.59); #Neutrophils 21.3 thou/uL (1.40-6.50); %Basophils 0.2 % (0.0-1.0); %Lymphocytes 1.2 % (21.0-51.0); %Neutrophils 92.3 % (42.0-75.0); Hematocrit 31.5 % (36.0-47.0); Hemoglobin 9.6 g/dL (12.0-16.0); Mean Corpuscular HGB CONC 30.5 g/dL (32.0-36.0); Mean Corpuscular Hemoglobin 27.8 pg (27.0-31.0); Mean Platelet Volume 10.8 fL (7.4-10.4); RBC Distribution Width 14.4 % (11.5-14.5); Red Blood Cell (RBC) Count 3.45 mill/uL (4.20-5.40)
[2023-09-03 01:26] LABS: Mean Corpuscular Volume 91.3 fl (78.0-98.0); Platelet Count 163 10x3/uL (130-400)
[2023-09-03] MEDS ORDERED: NOREPINEPHRINE 8 MG/250 ML-D5W 250 ML IVPB SCH (01:30)
[2023-09-03 01:40] LABS: Lactic Acid 2.1 mmol/L (0.5-2.2)
[2023-09-03 01:44] LABS: Anion Gap 14 mmol/L (10-20); BUN (Urea Nitrogen) 23 mg/dL (9.8-20.1); Calc. Creatinine Clearance 40 mL/min (70-130); Calcium 8.4 mg/dL (7.8-10.44); Carbon Dioxide 26 mmol/L (23-31); Chloride 103 mmol/L (98-107); Estimated GFR 33; Glucose 98 mg/dL (83-110); Magnesium 1.7 mg/dL (1.6-2.6); Potassium 4.4 mmol/L (3.5-5.1); Sodium 139 mmol/L (136-145)
[2023-09-03 01:48] LABS: Troponin I 0.024 ng/mL (< 0.028)
[2023-09-03] MEDS ORDERED: Albumin 25% 25 GM (100 mL) BOT IVPB SCH (02:15)
[2023-09-03] MEDS: Sodium Chloride 0.9% 1,000 ML IV SCH ×4 (02:22→23:59)
[2023-09-03] MEDS ORDERED: Magnesium 2 GM/50 ML(in water) 2 GM in Premix 1 BAG IVPB SCH (02:30)
[2023-09-03] MEDS: HYDROcodone/Acetaminophen 5/325 mg Tablet PO PRN (02:48)
[2023-09-03] MEDS: Calcium Carbonate 600 MG TAB PO SCH (10:08)
[2023-09-03] MEDS: Meropenem 1 GM in Sodium Chloride 0.9% 100 ML IVPB SCH ×2 (10:09→21:31)
[2023-09-03] MEDS: Potassium Citrate 10 MEQ TAB PO SCH ×2 (10:18→21:32)
[2023-09-03] MEDS: Clotrimazole 1 % Cream 30 GM TUBE TOP SCH ×2 (10:19→21:57)
[2023-09-03] MEDS: Acetaminophen 325 MG TAB PO PRN (10:21)
[2023-09-03] MEDS: Tamsulosin HCl 0.4 MG CAP PO SCH (21:32)
[2023-09-04] MEDS: Sodium Chloride 0.9% 1,000 ML IV SCH ×3 (01:08→21:47)
[2023-09-04 05:20] LABS: #Basophils 0.1 thou/uL (0.0-0.2); #Eosinphils 0.7 thou/uL (0.0-0.7); #Monocytes 0.6 thou/uL (0.11-0.59); #Neutrophils 10.1 thou/uL (1.40-6.50); %Basophils 0.4 % (0.0-1.0); %Eosinophils 5.2 % (0.0-10.0); %Lymphocytes 8.5 % (21.0-51.0); %Monocytes 4.9 % (0.0-10.0); %Neutrophils 80.2 % (42.0-75.0); Hematocrit 29.4 % (36.0-47.0); Hemoglobin 8.7 g/dL (12.0-16.0); Mean Corpuscular HGB CONC 29.6 g/dL (32.0-36.0); Mean Corpuscular Hemoglobin 27.6 pg (27.0-31.0); Mean Corpuscular Volume 93.3 fl (78.0-98.0); Platelet Count 142 10x3/uL (130-400); RBC Distribution Width 14.6 % (11.5-14.5); Red Blood Cell (RBC) Count 3.15 mill/uL (4.20-5.40); White Blood Cell (WBC) Count 12.6 10x3/uL (4.8-10.8)
[2023-09-04 05:38] LABS: ALT (SGPT) Less than 7 U/L (8-55); AST (SGOT) 14 U/L (5-34); Alkaline Phosphatase 77 U/L (40-110); Anion Gap 8 mmol/L (10-20); BUN (Urea Nitrogen) 24 mg/dL (9.8-20.1); Bilirubin, Total 0.4 mg/dL (0.2-1.2); Calc. Creatinine Clearance 40 mL/min (70-130); Calcium 8.4 mg/dL (7.8-10.44); Carbon Dioxide 28 mmol/L (23-31); Chloride 103 mmol/L (98-107); Estimated GFR 38; Globulin 2.7 g/dL (2.4-3.5); Glucose 83 mg/dL (83-110); Potassium 4.2 mmol/L (3.5-5.1); Protein, Total 5.7 g/dL (5.8-8.1); Sodium 135 mmol/L (136-145)
[2023-09-04] MEDS ORDERED: dilTIAZem 125 MG in Sodium Chloride 0.9% 100 ML IVPB SCH (08:45)
[2023-09-04] MEDS: Calcium Carbonate 600 MG TAB PO SCH (08:50)
[2023-09-04] MEDS: Potassium Citrate 10 MEQ TAB PO SCH ×2 (08:50→21:09)
[2023-09-04] MEDS: Clotrimazole 1 % Cream 30 GM TUBE TOP SCH ×2 (08:51→21:10)
[2023-09-04] MEDS ORDERED: dilTIAZem 25 MG/5 ML VIAL SLOW IVP SCH (09:15)
[2023-09-04] MEDS: Meropenem 1 GM in Sodium Chloride 0.9% 100 ML IVPB SCH ×2 (09:51→21:47)
[2023-09-04] MEDS: Tamsulosin HCl 0.4 MG CAP PO SCH (21:08)
[2023-09-05 05:46] LABS: #Basophils 0.1 thou/uL (0.0-0.2); #Eosinphils 0.7 thou/uL (0.0-0.7); #Monocytes 0.6 thou/uL (0.11-0.59); #Neutrophils 7.3 thou/uL (1.40-6.50); %Basophils 0.6 % (0.0-1.0); %Eosinophils 7.3 % (0.0-10.0); %Lymphocytes 10.4 % (21.0-51.0); %Monocytes 5.8 % (0.0-10.0); %Neutrophils 75.5 % (42.0-75.0); Hematocrit 29.8 % (36.0-47.0); Hemoglobin 8.9 g/dL (12.0-16.0); Mean Corpuscular HGB CONC 29.9 g/dL (32.0-36.0); Mean Corpuscular Hemoglobin 27.5 pg (27.0-31.0); Mean Platelet Volume 11.3 fL (7.4-10.4); Platelet Count 148 10x3/uL (130-400); RBC Distribution Width 14.4 % (11.5-14.5); Red Blood Cell (RBC) Count 3.24 mill/uL (4.20-5.40); White Blood Cell (WBC) Count 9.6 10x3/uL (4.8-10.8)
[2023-09-05 06:24] LABS: ALT (SGPT) Less than 7 U/L (8-55); AST (SGOT) 9 U/L (5-34); Albumin 2.8 g/dL (3.4-4.8); Alkaline Phosphatase 75 U/L (40-110); Anion Gap 9 mmol/L (10-20); BUN (Urea Nitrogen) 20 mg/dL (9.8-20.1); Bilirubin, Total 0.4 mg/dL (0.2-1.2); Calc. Creatinine Clearance 62 mL/min (70-130); Calcium 8.6 mg/dL (7.8-10.44); Carbon Dioxide 26 mmol/L (23-31); Chloride 107 mmol/L (98-107); Estimated GFR 59; Globulin 2.6 g/dL (2.4-3.5); Glucose 82 mg/dL (83-110); Potassium 4.7 mmol/L (3.5-5.1); Protein, Total 5.4 g/dL (5.8-8.1); Sodium 137 mmol/L (136-145)
[2023-09-05 08:53] VITALS: BMI 34.2
[2023-09-05] MEDS: Calcium Carbonate 600 MG TAB PO SCH (09:15)
[2023-09-05] MEDS: Clotrimazole 1 % Cream 30 GM TUBE TOP SCH ×2 (09:16→20:17)
[2023-09-05] MEDS: Meropenem 1 GM in Sodium Chloride 0.9% 100 ML IVPB SCH ×2 (09:16→20:14)
[2023-09-05] MEDS: Potassium Citrate 10 MEQ TAB PO SCH ×2 (09:19→20:14)
[2023-09-05] MEDS: Sodium Chloride 0.9% 1,000 ML IV SCH ×2 (09:21→21:28)
[2023-09-05] MEDS: Tamsulosin HCl 0.4 MG CAP PO SCH (20:14)
[2023-09-06 09:00] LABS: #Basophils 0.1 thou/uL (0.0-0.2); #Eosinphils 0.7 thou/uL (0.0-0.7); #Monocytes 0.6 thou/uL (0.11-0.59); #Neutrophils 5.7 thou/uL (1.40-6.50); %Basophils 0.7 % (0.0-1.0); %Eosinophils 8.4 % (0.0-10.0); %Monocytes 7.1 % (0.0-10.0); %Neutrophils 70.2 % (42.0-75.0); Hematocrit 33.8 % (36.0-47.0); Hemoglobin 10.5 g/dL (12.0-16.0); Mean Corpuscular HGB CONC 31.1 g/dL (32.0-36.0); Mean Corpuscular Hemoglobin 27.6 pg (27.0-31.0); Mean Corpuscular Volume 88.7 fl (78.0-98.0); Mean Platelet Volume 11.1 fL (7.4-10.4); Platelet Count 146 10x3/uL (130-400); RBC Distribution Width 14.2 % (11.5-14.5); Red Blood Cell (RBC) Count 3.81 mill/uL (4.20-5.40); White Blood Cell (WBC) Count 8.1 10x3/uL (4.8-10.8)
[2023-09-06 09:11] LABS: ALT (SGPT) Less than 7 U/L (8-55); AST (SGOT) 11 U/L (5-34); Albumin 2.7 g/dL (3.4-4.8); Alkaline Phosphatase 86 U/L (40-110); Anion Gap 13 mmol/L (10-20); BUN (Urea Nitrogen) 15 mg/dL (9.8-20.1); Bilirubin, Total 0.4 mg/dL (0.2-1.2); Calc. Creatinine Clearance 77 mL/min (70-130); Calcium 8.8 mg/dL (7.8-10.44); Carbon Dioxide 22 mmol/L (23-31); Chloride 109 mmol/L (98-107); Estimated GFR 71; Globulin 2.9 g/dL (2.4-3.5); Glucose 96 mg/dL (83-110); Potassium 5.2 mmol/L (3.5-5.1); Protein, Total 5.6 g/dL (5.8-8.1); Sodium 139 mmol/L (136-145)
[2023-09-06] MEDS: Potassium Citrate 10 MEQ TAB PO SCH (09:52)
[2023-09-06] MEDS: Meropenem 1 GM in Sodium Chloride 0.9% 100 ML IVPB SCH ×2 (09:52→20:43)
[2023-09-06] MEDS: Calcium Carbonate 600 MG TAB PO SCH (09:52)
[2023-09-06] MEDS: Clotrimazole 1 % Cream 30 GM TUBE TOP SCH ×2 (09:53→20:42)
[2023-09-06] MEDS ORDERED: Furosemide 40 MG (4 mL) VIAL SLOW IVP SCH ×2 (11:30)
[2023-09-06] MEDS ORDERED: Lorazepam 2 MG/ML VIAL SLOW IVP SCH (12:00)
[2023-09-06] MEDS: Tamsulosin HCl 0.4 MG CAP PO SCH (20:43)
[2023-09-07] MEDS: Calcium Carbonate 600 MG TAB PO SCH (10:19)
[2023-09-07] MEDS: Meropenem 1 GM in Sodium Chloride 0.9% 100 ML IVPB SCH ×2 (10:19→21:07)
[2023-09-07] MEDS: Clotrimazole 1 % Cream 30 GM TUBE TOP SCH ×2 (10:19→21:07)
[2023-09-07] MEDS ORDERED: Ipratropium/Albuterol 3 ML NEB NEB PRN (17:32)
[2023-09-07] MEDS ORDERED: Ipratropium/Albuterol 3 ML NEB ONE (17:33)
[2023-09-07] MEDS ORDERED: Furosemide 40 MG (4 mL) VIAL SLOW IVP SCH (17:45)
[2023-09-07] MEDS: Tamsulosin HCl 0.4 MG CAP PO SCH (21:07)
[2023-09-08] MEDS: Meropenem 1 GM in Sodium Chloride 0.9% 100 ML IVPB SCH ×3 (06:11→22:06)
[2023-09-08 06:51] LABS: Anion Gap 11 mmol/L (10-20); BUN (Urea Nitrogen) 13 mg/dL (9.8-20.1); Calc. Creatinine Clearance 77 mL/min (70-130); Calcium 9.3 mg/dL (7.8-10.44); Carbon Dioxide 30 mmol/L (23-31); Chloride 103 mmol/L (98-107); Estimated GFR 73; Glucose 83 mg/dL (83-110); Potassium 4.5 mmol/L (3.5-5.1); Sodium 139 mmol/L (136-145)
[2023-09-08] MEDS ORDERED: Furosemide 40 MG (4 mL) VIAL IVP SCH (07:00)
[2023-09-08] MEDS: Clotrimazole 1 % Cream 30 GM TUBE TOP SCH ×2 (08:39→20:40)
[2023-09-08] MEDS: Calcium Carbonate 600 MG TAB PO SCH (08:39)
[2023-09-08] MEDS ORDERED: Heparin 10,000 UNITS/ 10 ML VIAL ONE (09:54)
[2023-09-08] MEDS ORDERED: CEFAZOLIN 2 GM VIAL ONE (10:29)
[2023-09-08] MEDS ORDERED: Iopamidol 370 76% 100 ML VIAL ONE (11:12)
[2023-09-08] MEDS ORDERED: Midazolam HCl 2 mg/2 ml Vial ONE (12:07)
[2023-09-08] MEDS ORDERED: Propofol 500 MG/50 ML VIAL ONE (12:08)
[2023-09-08] MEDS ORDERED: Ketamine In 0.9 % NaCl 50 MG/5 ML SYRINGE ONE (12:08)
[2023-09-08] MEDS ORDERED: Ondansetron HCl/PF 4 MG/2 ML Vial IVP PRN (14:23)
[2023-09-08] MEDS ORDERED: Promethazine HCl 25 MG/ML VIAL IM PRN (14:23)
[2023-09-08] MEDS: Tamsulosin HCl 0.4 MG CAP PO SCH (20:40)
[2023-09-08 23:35] VITALS: BP 127/69
[2023-09-09] MEDS: Calcium Carbonate 600 MG TAB PO SCH (10:42)
[2023-09-09] MEDS: Clotrimazole 1 % Cream 30 GM TUBE TOP SCH ×2 (10:43→20:40)
[2023-09-09] MEDS: Enoxaparin 40 MG (0.4 mL) SYRINGE SC SCH (10:44)
[2023-09-09] MEDS ORDERED: Digoxin 0.5 MG/2 ML AMP SLOW IVP SCH (13:15)
[2023-09-09] MEDS: Acetaminophen 325 MG TAB PO PRN (15:32)
[2023-09-09] MEDS: Polyethylene Glycol 3350 17 GM Packet PO PRN (15:33)
[2023-09-09] MEDS: Tamsulosin HCl 0.4 MG CAP PO SCH (20:40)
[2023-09-10] MEDS: Polyethylene Glycol 3350 17 GM Packet PO PRN (09:09)
[2023-09-10] MEDS: Calcium Carbonate 600 MG TAB PO SCH (09:10)
[2023-09-10] MEDS: Digoxin 0.5 MG/2 ML AMP SLOW IVP SCH (09:11)
[2023-09-10] MEDS: Enoxaparin 40 MG (0.4 mL) SYRINGE SC SCH (09:11)
[2023-09-10] MEDS: Clotrimazole 1 % Cream 30 GM TUBE TOP SCH ×2 (09:12→20:11)
[2023-09-10] MEDS: Furosemide 40 MG (4 mL) VIAL SLOW IVP SCH (10:30)
[2023-09-10] MEDS: Tamsulosin HCl 0.4 MG CAP PO SCH (20:10)
[2023-09-11] MEDS: Enoxaparin 40 MG (0.4 mL) SYRINGE SC SCH (09:24)
[2023-09-11] MEDS: Calcium Carbonate 600 MG TAB PO SCH (09:24)
[2023-09-11] MEDS: Furosemide 40 MG (4 mL) VIAL SLOW IVP SCH (09:24)
[2023-09-11] MEDS: Digoxin 0.5 MG/2 ML AMP SLOW IVP SCH (09:25)
[2023-09-11] MEDS: Clotrimazole 1 % Cream 30 GM TUBE TOP SCH ×2 (09:25→20:43)
[2023-09-11] MEDS: Apixaban 2.5 MG TAB PO SCH (20:41)
[2023-09-11] MEDS: Tamsulosin HCl 0.4 MG CAP PO SCH (20:42)
[2023-09-12 07:32] LABS: Hematocrit 34.1 % (36.0-47.0); Hemoglobin 10.4 g/dL (12.0-16.0); Mean Corpuscular HGB CONC 30.5 g/dL (32.0-36.0); Mean Corpuscular Hemoglobin 27.3 pg (27.0-31.0); Mean Corpuscular Volume 89.5 fl (78.0-98.0); Mean Platelet Volume 10.5 fL (7.4-10.4); Platelet Count 191 10x3/uL (130-400); RBC Distribution Width 14.1 % (11.5-14.5); Red Blood Cell (RBC) Count 3.81 mill/uL (4.20-5.40); White Blood Cell (WBC) Count 5.7 10x3/uL (4.8-10.8)
[2023-09-12 07:59] VITALS: TEMP 97.8
[2023-09-12 07:59] LABS: Anion Gap 10 mmol/L (10-20); BUN (Urea Nitrogen) 15 mg/dL (9.8-20.1); Calc. Creatinine Clearance 70 mL/min (70-130); Calcium 8.6 mg/dL (7.8-10.44); Carbon Dioxide 32 mmol/L (23-31); Chloride 99 mmol/L (98-107); Estimated GFR 68; Glucose 82 mg/dL (83-110); Potassium 4.1 mmol/L (3.5-5.1); Sodium 137 mmol/L (136-145)
[2023-09-12] MEDS ORDERED: Digoxin 0.125 MG TAB PO SCH (09:00)
[2023-09-12 09:13] LABS: CA Oxalate Dihydrate 30 % (.); CA Oxalate Monohydrate 65 % (.); Color Brown (.); Stone Weight 116 mg (.)
[2023-09-12] MEDS: Calcium Carbonate 600 MG TAB PO SCH (09:43)
[2023-09-12] MEDS: Apixaban 2.5 MG TAB PO SCH (09:44)
[2023-09-12] MEDS: Furosemide 40 MG (4 mL) VIAL SLOW IVP SCH (09:44)
[2023-09-12] MEDS: Polyethylene Glycol 3350 17 GM Packet PO PRN (09:44)
[2023-09-12] MEDS: Clotrimazole 1 % Cream 30 GM TUBE TOP SCH (09:44)
[2023-09-13] MEDS ORDERED: Furosemide 40 MG TAB PO SCH (07:30)
[2023-09-13] MEDS ORDERED: Potassium Chloride 10 MEQ TAB PO SCH (08:00)
== END 2023-09-12 15:25 | DRG 853 ==
LOC: ERS 10:58 → ERHOLD 15:10 → 2NO 19:55 → CCU 09-03 01:33 → IMCU/EMU 09-05 03:52
PROVIDERS: ADMIT Family Medicine; ATTEND Internal Medicine
PROC: 3E03329 Introduction of Other Anti-infective into Peripheral Vein, Percutaneous Approach (ICD-10-PCS; 2023-08-13)
PROC: 4A033R1 Measurement of Arterial Saturation, Peripheral, Percutaneous Approach (ICD-10-PCS; 2023-08-18)
PROC: 30233J1 Transfusion of Nonautologous Serum Albumin into Peripheral Vein, Percutaneous Approach (ICD-10-PCS; 2023-08-24)
PROC: 0T768DZ Dilation of Right Ureter with Intraluminal Device, Via Natural or Artificial Opening Endoscopic (ICD-10-PCS; principal; 2023-09-02)
PROC: 0TC08ZZ Extirpation of Matter from Right Kidney, Via Natural or Artificial Opening Endoscopic (ICD-10-PCS; 2023-09-02)
PROC: 0TC68ZZ Extirpation of Matter from Right Ureter, Via Natural or Artificial Opening Endoscopic (ICD-10-PCS; 2023-09-02)
PROC: 3E033XZ Introduction of Vasopressor into Peripheral Vein, Percutaneous Approach (ICD-10-PCS; 2023-09-03)
DX: A41.4 Sepsis due to anaerobes (principal); I21.A1 Myocardial infarction type 2; J96.01 Acute respiratory failure with hypoxia; I50.33 Acute on chronic diastolic (congestive) heart failure; N13.2 Hydronephrosis with renal and ureteral calculous obstruction; N39.0 Urinary tract infection, site not specified; N17.9 Acute kidney failure, unspecified; J90 Pleural effusion, not elsewhere classified; I48.92 Unspecified atrial flutter; J98.11 Atelectasis; G93.40 Encephalopathy, unspecified; I48.11 Longstanding persistent atrial fibrillation; I11.0 Hypertensive heart disease with heart failure; E66.9 Obesity, unspecified; R79.89 Other specified abnormal findings of blood chemistry; R53.1 Weakness; E87.5 Hyperkalemia; K80.20 Calculus of gallbladder without cholecystitis without obstruction; F28 Other psychotic disorder not due to a substance or known physiological condition; M19.90 Unspecified osteoarthritis, unspecified site; B96.4 Proteus (mirabilis) (morganii) as the cause of diseases classified elsewhere; W18.30XA Fall on same level, unspecified, initial encounter; N28.1 Cyst of kidney, acquired; E27.8 Other specified disorders of adrenal gland; D64.9 Anemia, unspecified; R33.9 Retention of urine, unspecified; G47.30 Sleep apnea, unspecified; Z88.2 Allergy status to sulfonamides; Z88.1 Allergy status to other antibiotic agents; Z98.891 History of uterine scar from previous surgery; Z79.899 Other long term (current) drug therapy; Z87.891 Personal history of nicotine dependence; Z68.33 Body mass index [BMI] 33.0-33.9, adult; Z90.89 Acquired absence of other organs; Y92.041 Bathroom in boarding-house as the place of occurrence of the external cause
CPT/HCPCS: 33274; 36415; 36416; 36600; 51702; 70450; 71045; 71250; 72125; 74018; 74176; 74177; 74230; 74420; 76705; 76770; 80048; 80053; 80202; 80306; 80307; 81001; 82365; 82533; 82550; 82565; 82805; 83605; 83690; 83735; 83880; 84443; 84484; 85025; 85027; 86140; 86850; 86900; 86901; 87040; 87077; 87086; 87149; 87186; 88300; 93005; 93010; 93306; 94640; 96365; 96366; 96367; 96376; C1747; C1760; C1769; C1786; C1894; C2617; J0696; J1160; J1644; J1650; J1940; J2001; J2060; J2185; J2250; J2405; J2543; J2704; J3370; J3475; J3490; J7050; J7120; J7620; P9047; Q9967